=== PATIENT | male | born 1935 | race Caucasian/White ===

== ENCOUNTER 2017-09-16 06:22 | Observation (INO) | payer MEDICARE, SELFPAY ==
[2017-09-16] VITALS (23 sets, daily range): BP systolic 118–191; BP diastolic 49–87; PULSE 50–92; RESP 16–22; TEMP 36.7–37.3; O2SAT 92–98; BMI 32.3; BMI 31.8
--- NOTE | 2017-09-16 06:31 | HMH.EDCP ---
ED Disposition Clinical Impression: Angina at rest Disposition: Admitted As Inpatient Condition on Discharge: Serious - Critical Care Critical Care Time: No Attestation: On , the high probability of a clinically significant, sudden or life threatening deterioration of the following system(s) required my full and direct attention, intervention and personal management. The time I documented below is in addition to time spent performing reported procedures but includes the following listed in this critical care notation. Medical Decision Making - Medical Records Medical records reviewed: Yes: I reviewed the patient's medical records. - Lab Data Lab results reviewed: Yes: I reviewed the patient's lab results. Orders (Tests/Meds): ED MEDICATIONS Discontinued Medications Generic Name Dose Route Start Last Admin Trade Name Freq PRN Reason Stop Dose Admin Aspirin 243 mg 09/16/17 06:25 09/16/17 06:27 Aspirin 81mg Chewable Tablet PO 09/16/17 06:26 243 mg ONCE ONE Administration Nitroglycerin 0.4 mg 09/16/17 06:26 09/16/17 06:28 Nitrostat 0.4mg Sl Tablet SL 09/16/17 06:27 1 tab ONCE ONE Administration - ECG Data Tracing #1 I reviewed this ECG and interpreted as documented below: Ischemic changes: non-specific ST-T wave changes - Physician Consults Physician Consulted: rustam Reason -: Pt condition Additional Consult: osman Reason -: Admission - Jean-Claude Inquiry Pt receiving controlled substance: No Chest Pain HPI - General Stated Complaint: chest pressure Time Seen by Provider: 09/16/17 06:37 Mode of Arrival: Ambulatory Source of Information: Patient, Relative, Medical Record Limitations: No Limitations - History of Present Illness HPI narrative: acute onset of ant chest pain this am with diaphoresis - had cabg 3 yrs ago complaint: chest pain indicative of cardiac Duration: intermittent Activity at onset: during rest Pain location: substernal Severity: moderate Quality: tightness Pain radiation: none Associated symptoms: nausea, diaphoresis Risk Factors for CAD: Hypertension, Hypercholesterolemia, Family Hx of CAD Treatments prior to or on arrival for Cardiac Chest Pain: aspirin - RADHA Score Non-Stemi Age of patient: 65 yrs or more Number of risk factors for CAD: Presence of 3 or more Prior coronary artery stenosis(seen in coronary angiography): Less than 50% ST-Segment deviation on ECG (more than 1 min): Absent Prior aspirin intake: ASA intake in the last 7 days Severe anginal chest pain: Two or more episodes in last 24 hours Elevated cardiac markers(CK-MB or troponin): Absent Non-Stemi Risk Score: 4 - Related Data Prior Cardiac Testing/Procedures: CABG Home Medications Medication Instructions Recorded Confirmed Amlodipine Besylate [Norvasc 5mg 5 mg PO DAILY 09/16/17 09/16/17 tablet] Aspirin [Aspirin 81mg EC Tab] 81 mg PO DAILY 09/16/17 09/16/17 Cholecalciferol (Vitamin D3) 400 unit PO DAILY 09/16/17 09/16/17 [Vitamin D3] Clopidogrel Bisulfate [Clopidogrel 75 mg PO DAILY 09/16/17 09/16/17 75mg Tab] Cyanocobalamin (Vitamin B-12) 2,500 mcg PO DAILY 09/16/17 09/16/17 [Vitamin B12 2.5mg Tab] Docusate Sodium [Docusate Sodium 100 mg PO BID 09/16/17 09/16/17 100mg Cap] Empagliflozin [Jardiance] 10 mg PO DAILY 09/16/17 09/16/17 Fenofibrate,Micronized [Tricor 145 mg PO DAILY 09/16/17 09/16/17 145mg] Gabapentin [Gabapentin 300mg Cap] 300 mg PO TID 09/16/17 09/16/17 Polyethylene Glycol 3350 [Miralax 17 gm PO BID 09/16/17 09/16/17 17gm Packet] Ramipril 10 mg PO DAILY 09/16/17 09/16/17 Rosuvastatin Calcium [Crestor] 10 mg PO DAILY 09/16/17 09/16/17 Tamsulosin HCl [Flomax] 0.4 mg PO DAILY 09/16/17 09/16/17 Torsemide [Demadex] 20 mg PO BID 09/16/17 09/16/17 glipiZIDE [Glipizide Xl] 10 mg PO AC 09/16/17 09/16/17 Allergies Allergy/AdvReac Type Severity Reaction Status Date / Time No Known Allergies Allergy Verified
--- NOTE | 2017-09-16 06:37 | ED_ITS ---
ED Disposition Clinical Impression: Angina at rest Disposition: Admitted As Inpatient Condition on Discharge: Serious - Critical Care Critical Care Time: No Attestation: On , the high probability of a clinically significant, sudden or life threatening deterioration of the following system(s) required my full and direct attention, intervention and personal management. The time I documented below is in addition to time spent performing reported procedures but includes the following listed in this critical care notation. Medical Decision Making - Medical Records Medical records reviewed: Yes: I reviewed the patient's medical records. - Lab Data Lab results reviewed: Yes: I reviewed the patient's lab results. Orders (Tests/Meds): ED MEDICATIONS Discontinued Medications Generic Name Dose Route Start Last Admin Trade Name Freq PRN Reason Stop Dose Admin Aspirin 243 mg 09/16/17 06:25 09/16/17 06:27 Aspirin 81mg Chewable Tablet PO 09/16/17 06:26 243 mg ONCE ONE Administration Nitroglycerin 0.4 mg 09/16/17 06:26 09/16/17 06:28 Nitrostat 0.4mg Sl Tablet SL 09/16/17 06:27 1 tab ONCE ONE Administration - ECG Data Tracing #1 I reviewed this ECG and interpreted as documented below: Ischemic changes: non-specific ST-T wave changes - Physician Consults Physician Consulted: rustam Reason -: Pt condition Additional Consult: osman Reason -: Admission - Jean-Claude Inquiry Pt receiving controlled substance: No Chest Pain HPI - General Stated Complaint: chest pressure Time Seen by Provider: 09/16/17 06:37 Mode of Arrival: Ambulatory Source of Information: Patient, Relative, Medical Record Limitations: No Limitations - History of Present Illness HPI narrative: acute onset of ant chest pain this am with diaphoresis - had cabg 3 yrs ago complaint: chest pain indicative of cardiac Duration: intermittent Activity at onset: during rest Pain location: substernal Severity: moderate Quality: tightness Pain radiation: none Associated symptoms: nausea, diaphoresis Risk Factors for CAD: Hypertension, Hypercholesterolemia, Family Hx of CAD Treatments prior to or on arrival for Cardiac Chest Pain: aspirin - RADHA Score Non-Stemi Age of patient: 65 yrs or more Number of risk factors for CAD: Presence of 3 or more Prior coronary artery stenosis(seen in coronary angiography): Less than 50% ST-Segment deviation on ECG (more than 1 min): Absent Prior aspirin intake: ASA intake in the last 7 days Severe anginal chest pain: Two or more episodes in last 24 hours Elevated cardiac markers(CK-MB or troponin): Absent Non-Stemi Risk Score: 4 - Related Data Prior Cardiac Testing/Procedures: CABG Home Medications Medication Instructions Recorded Confirmed Amlodipine Besylate [Norvasc 5mg 5 mg PO DAILY 09/16/17 09/16/17 tablet] Aspirin [Aspirin 81mg EC Tab] 81 mg PO DAILY 09/16/17 09/16/17 Cholecalciferol (Vitamin D3) 400 unit PO DAILY 09/16/17 09/16/17 [Vitamin D3] Clopidogrel Bisulfate [Clopidogrel 75 mg PO DAILY 09/16/17 09/16/17 75mg Tab] Cyanocobalamin (Vitamin B-12) 2,500 mcg PO DAILY 09/16/17 09/16/17 [Vitamin B12 2.5mg Tab] Docusate Sodium [Docusate Sodium 100 mg PO BID 09/16/17 09/16/17 100mg Cap] Empagliflozin [Jardiance] 10 mg PO DAILY 09/16/17 09/16/17 Feno
--- NOTE | 2017-09-16 06:46 | XR_ITS ---
XR chest portable HISTORY: ITS.REASON: chest pain ORDERING PHYSICIAN: Rigo May MD PATIENT AGE: 81 years COMPARISON: 11/23/2012 FINDINGS: There has been an interval median sternotomy with CABG. There is increased density along the left heart border which may be related to postsurgical changes have an a similar appearance on a prior scanogram of the chest CT of 04/08/2016. The remaining lungs are clear. Bone plate is present over the lower cervical spine. IMPRESSION: No acute finding. Postsurgical changes
--- NOTE | 2017-09-16 06:46 | CA_ITS ---
PROCEDURE: 2-D M-mode and color Doppler study INDICATIONS FOR THE TEST: Chest pain X COPD Heart Murmur Tobacco Smoking Palpitations Fatigue Syncope Edema HypertensionXDiabetes MellitusX Rheumatic Fever SOBXDOE ObesityXXHyperlipidemiaX Family History HD Additional History CABG,CAD PATIENT INFORMATION HEIGHT: 70 WEIGHT:225 GENDER: Male B/P:131/68 2-D/M-MODE INTERPRETATION: 2-D MEASUREMENTS OBSERVED VALUES IN CMS Right Ventricular Dimension (RVDd) 2.6 Interventricular Septum (Thickness)(IVsd) 1.0 Left Ventricular Internal Dimensions(LVIDd) 5.4 Left Ventricular Posterior Wall (Thickness)(LVPWd) .9 Aortic Root 3.5 Aortic Cusp Separation 1.6 Left Atrial Dimensions (LAD) 3.8 2D 1. Left atrium is mildly enlarged, left ventricle is normal size, there is mild qualitative concentric left ventricular hypertrophy, visually estimated ejection fraction 55% with no obvious regional wall motion abnormality. 2. The right atrium and right ventricle are relatively normal size and function 3. The aortic valve is minimally thickened and calcified leaflet can't display good mobility. 4. The mitral and tricuspid valve leaflets are minimally thickened. 5. The pulmonic valve is poorly visualized 6. No significant pericardial effusion noted. DOPPLER INTERROGATION: Doppler interrogation of the aortic, mitral and tricuspid valvular presence of mild mitral and tricuspid regurgitation, tricuspid and jet velocity insufficient for calculation of the right ventricular systolic pressure, grade 1 diastolic dysfunction seen with tissue Doppler evidence of raised left atrial pressure. CONCLUSION: 1. Mildly enlarged left atrium, normal left ventricular size, mild concentric left ventricular hypertrophy, visually estimated ejection fraction 55% with no obvious regional wall motion abnormality, grade 1 diastolic dysfunction seen with tissue Doppler evidence of raised left atrial pressure. 2. Mild mitral and tricuspid regurgitation. 3. No significant pericardial effusion noted.
[2017-09-16 06:53] LABS: POC Glucose,Bedside 243 mg/dL
[2017-09-16 07:38] LABS: Activated Partial Thrombo Time 23.3 seconds (23.6-34.0); INR 1.01 (0.9-1.1); Prothrombin Time 10.9 seconds (9.4-11.8)
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
--- NOTE | 2017-09-16 07:45 | IR_ITS ---
CARDIAC CATHETERIZATION DATE OF CATHETERIZATION:09/16/2017 8:05 AM PROCEDURES: 1. Left heart catheterization 2. Left ventriculogram 3. Selective coronary angiogram 4. Left internal mammary angiography 5. Bilateral selective renal angiogram 6. Drug-eluting stent deployment to the LAD 7. Drug-eluting stent deployment the circumflex artery INDICATION FOR TEST: 1. Acute coronary syndrome 2. Coronary artery disease 3. History of coronary artery bypass surgery 4. Chronic renal failure creatinine 1.5 5. Hypertension 6. Renovascular hypertension 7. Suspected renal artery stenosis Informed consent was obtained prior to the procedure. COMPLICATIONS: None ESTIMATED BLOOD LOSS: Less than 10 ml. TECHNIQUE: One percent lidocaine was used to anesthetize the right groin. The right femoral artery was accessed via the Seldinger technique. A 5 [place] sheath was placed in the right femoral artery and a JL 4 JR4 catheter were used for the diagnostic left heart catheterization left ventriculogram selective coronary angiography as well as left internal mammary angiography. Because of patient's severe hypertension along with creatinine of 1.5 and known severe coronary artery disease] decided to perform bilateral selective renal angiography to determine or evaluate for renovascular hypertension or renal artery stenosis. The JR4 catheter was used to selectively intubate each renal artery. At the end the diagnostic angiogram the ACT was 204 seconds therefore 7000 units of heparin was administered intra-arterially producing an ACT of 373 seconds. A 45 cm 6 Liberian sheath was placed in the right groin and the 5 Liberian sheath was removed over a wire. A 6 [place]ian JL4 guide catheter was used intubate the left main artery and a wire was placed in the LAD as well as the circumflex artery. A 3 mm x 10 mm balloon was placed in the distal left main artery extending into the LAD and deployed at 20 danielle. Following this a 3 mm x 12 mm resolute [place] stent was deployed in the distal left main extending into the proximal LAD at 20 danielle. A 4 mm x 6 mm balloon was then placed in the distal left main artery and deployed at 20 danielle in order to post dilate. The wire was pulled back out of the LAD and into the circumflex artery where 3 mm x 12 mm balloon was used to open the struts going into the circumflex artery. Following this a 4 mm x 12 mm resolute [place] stent was placed in the left main artery extending into the ostial proximal circumflex artery this was deployed at 18 danielle. Excellent angiographic results were obtained therefore the balloon was brought back and placed into the left coronary cusp and the ostium of the left main artery and then the balloon was deployed at 20 danielle in order to post dilate. Repeat angiography demonstrated the LAD was widely patent in its proximal segment and now feeding the very large first diagonal artery in an antegrade manner. At the end of the procedure the apparatus was removed the groin is reprepped closure changed sheath was removed good hemostasis was achieved using Perclose device patient transferred to the postop holding area in stable condition ANGIOGRAPHIC RESULTS: 1. The left main artery is short and normal 2. The left anterior descending artery has an ostial 99% stenosis which then gives rise to a large unbypassed first diagonal artery. There is very scant competitive flow in the LAD system with no backfilling of the large first diagonal artery from the OSWALD graft. 3. The circumflex artery is a nondominant vessel yet still supplies a medium in very large second and third obtuse marginal artery. There is proximal 30% stenosis followed by additional 20-30% stenoses in the third obtuse 4. The right coronary artery is a dominant vessel has proximal 30-40% stenoses mid v
[2017-09-16 07:56] LABS: Alanine Aminotransferase 31 U/L (12-78); Albumin Level 3.5 gm/dL (3.4-5.0); Alkaline Phosphatase 53 U/L (46-116); Anion Gap 14.1 mEq/L (5-15); Bilirubin,Direct 0.1 mg/dL (0.0-0.2); Bilirubin,Total 0.3 mg/dL (0.2-1.0); Blood Urea Nitrogen 28 mg/dL (7-18); Carbon Dioxide 28 mmol/L (21.0-32.0); Chloride 104 mmol/L (98-107); Creatinine Clearance Estimated 56 mL/min (0-300); Creatinine,Serum 1.54 mg/dL (0.70-1.30); Estimated Glomerular Filt Rate 44 ml/min (>60); GFR (African American) 53 ML/MIN (>60); Glucose 225 mg/dL (74-106); Sodium 141 mmol/L (136-145); Total Protein,Serum 6.9 gm/dL (6.4-8.2)
[2017-09-16 07:58] LABS: Basophils % 0.7 % (0.1-2.0); Eosinophils # 0.1 K/mm3 (0.0-0.4); Eosinophils % 2.2 % (0.1-12.0); Hematocrit 38.7 % (42.0-52.0); Hemoglobin 12.3 g/dL (14.1-18.0); Lymphocytes # 3.3 K/mm3 (0.7-4.5); Mean Corpuscular HGB Conc 31.7 g/dL (31.8-35.4); Mean Corpuscular Hemoglobin 29.8 pg (27.0-31.2); Mean Corpuscular Volume 94.2 fl (80-94); Mean Platelet Volume 9.4 fl (7.4-10.4); Monocytes # 0.5 K/mm3 (0.1-1.0); Monocytes % 8.1 % (1.7-9.3); Neutrophils # 1.9 K/mm3 (1.8-7.8); Platelet Count 234 K/mm3 (142-424); Red Blood Count 4.11 M/mm3 (4.60-6.20); Red Cell Distribution Width 12.8 % (11.5-17.5); White Blood Count 5.8 K/mm3 (4.8-10.8)
[2017-09-16 08:00] LABS: MANUAL DIFFERENTIAL MANUAL DIFFERENTIAL (MANUAL DIFF)
[2017-09-16 08:04] LABS: Potassium 5.1 mmoL/L (3.5-5.1)
[2017-09-16 08:05] LABS: Aspartate Amino Transferase 24 U/L (15-37)
[2017-09-16 08:06] LABS: Creatine Kinase 72 U/L (39-308)
[2017-09-16 08:07] LABS: CKMB Relative Index 0.7 U/L (0-4.0); Creatine Kinase MB < 0.5 mg/ml (0.0-3.6); Troponin I < 0.02 ng/ml (0.00-0.06)
[2017-09-16 08:39] LABS: Eosinophils % 1 % (0-3); Lymphocytes % 49 % (10-50); Monocytes % 4 % (2-9); Neutrophils % 40 % (42-76); Total Cells Counted 100
[2017-09-16 08:40] LABS: Platelet Estimate Normal
[2017-09-16 11:00] LABS: CATHL Activated Clotting Time 202 SEC (74-125)
[2017-09-16 11:01] LABS: CATHL Activated Clotting Time 373 SEC (74-125)
--- NOTE | 2017-09-16 16:04 | HMH.HP ---
*Admission Date: 09/16/17 *Chief complaint: Chest pressure *History of present illness: 81-year-old male with history of coronary artery disease, status post CABG, diabetes that is controlled, morbid obesity, hyperlipidemia, hypertension, sedentary lifestyle presented to the emergency department after developing an episode of presyncope with diaphoresis and chest pressure this evening while preparing for a trip out of town. Patient tells me he felt like he was getting ready to pass out he then broke out in a sweat and this was followed by discomfort in the central chest. He became concerned about cardiac related event and presented to the emergency department. In the emergency department patient was evaluated. EKG did not reveal any ischemic changes and first troponin was negative. Cardiology was contacted due to the patient's presentation in cardiac catheterization is to be performed. Patient has been diagnosed with acute coronary syndrome/unstable angina [facility] History I have reviewed the patient's past medical history: Yes Medical History: Reports:: Atherosclerotic Heart Disease, Cancer (MELANOMA), Coronary Artery Disease, Diabetes Mellitus Type 2, Hyperlipidemia, Hypertension Denies:: Diabetes Mellitus Type 1, MRSA Other Medical History: Reports: Arthritis Comment: ObstructIVE sleep apnea, abdominal aortic aneurysm status post repair Other Surgeries: Yes: Angioplasty, Cancer Surgery, Coronary Stent, EGD, Other (COLONOSCOPY WITH POLYP REMOVAL, CHOLEYSYSTECTOMY) Amputation: No Fractures: No - *Social History Educational Level: Completed College Smoking Status: Never smoker Alcohol Intake: never Occupational Status: retired Housing: house Household Members: spouse - Psychiatric History Expresses thoughts of harming self/others: None Suicide Plan Description: No Plan *Family Hx:: Cancer Review of Systems - Review of Systems Review of systems:: pertinent systems reviewed and negative unless documented below See HPI - *Neurologic Denies seizure-like activity Meds Home Medications Medication Instructions Recorded Confirmed Type Amlodipine Besylate [Norvasc 5mg 5 mg PO DAILY 09/16/17 09/16/17 History tablet] Aspirin [Aspirin 81mg EC Tab] 81 mg PO DAILY 09/16/17 09/16/17 History Cholecalciferol (Vitamin D3) 400 unit PO DAILY 09/16/17 09/16/17 History [Vitamin D3] Clopidogrel Bisulfate [Clopidogrel 75 mg PO DAILY 09/16/17 09/16/17 History 75mg Tab] Cyanocobalamin (Vitamin B-12) 2,500 mcg PO DAILY 09/16/17 09/16/17 History [Vitamin B12 2.5mg Tab] Docusate Sodium [Docusate Sodium 100 mg PO BID 09/16/17 09/16/17 History 100mg Cap] Empagliflozin [Jardiance] 10 mg PO DAILY 09/16/17 09/16/17 History Fenofibrate,Micronized [Tricor 145 mg PO DAILY 09/16/17 09/16/17 History 145mg] Gabapentin [Gabapentin 300mg Cap] 300 mg PO TID 09/16/17 09/16/17 History Polyethylene Glycol 3350 [Miralax 17 gm PO BID 09/16/17 09/16/17 History 17gm Packet] RX: Ramipril 10 mg PO DAILY 09/16/17 09/16/17 History Rosuvastatin Calcium [Crestor] 10 mg PO DAILY 09/16/17 09/16/17 History Tamsulosin HCl [Flomax] 0.4 mg PO DAILY 09/16/17 09/16/17 History Torsemide [Demadex] 20 mg PO BID 09/16/17 09/16/17 History glipiZIDE [Glipizide Xl] 10 mg PO AC 09/16/17 09/16/17 History Allergies Allergy/AdvReac Type Severity Reaction Status Date / Time No Known Allergies Allergy Verified 09/16/17 06:24 Exam Vital signs and Labs for Last 24 Hours: Temp Pulse Resp BP Pulse Ox 99.1 F 76 20 191/75 94 L 09/16/17 10:54 09/16/17 10:54 09/16/17 10:54 09/16/17 10:54 09/16/17 10:54 Laboratory Results - last 24 hr 09/16/17 06:41: POC Glucose 243 09/16/17 06:45: WBC 5.8, RBC 4.11 L, Hgb 12.3 L, Hct 38.7 L, MCV 94.2 H, MCH 29.8, MCHC 31.7 L, RDW 12.8, Plt Count 234, MPV 9.4, Neut % (Auto) 33.0 L, Lymph % (Auto) 56.0 H, [place] % (Auto) 8.1, Eos % (Auto) 2.2, Baso % (Auto) 0.7, Neut # (Auto) 1.9, Lymph # (Auto) 3.3,
--- NOTE | 2017-09-16 16:07 | P.HP_ITS ---
*Admission Date: 09/16/17 *Chief complaint: Chest pressure *History of present illness: 81-year-old male with history of coronary artery disease, status post CABG, diabetes that is controlled, morbid obesity, hyperlipidemia, hypertension, sedentary lifestyle presented to the emergency department after developing an episode of presyncope with diaphoresis and chest pressure this evening while preparing for a trip out of town. Patient tells me he felt like he was getting ready to pass out he then broke out in a sweat and this was followed by discomfort in the central chest. He became concerned about cardiac related event and presented to the emergency department. In the emergency department patient was evaluated. EKG did not reveal any ischemic changes and first troponin was negative. Cardiology was contacted due to the patient's presentation in cardiac catheterization is to be performed. Patient has been diagnosed with acute coronary syndrome/unstable angina [facility] History I have reviewed the patient's past medical history: Yes Medical History: Reports:: Atherosclerotic Heart Disease, Cancer (MELANOMA), Coronary Artery Disease, Diabetes Mellitus Type 2, Hyperlipidemia, Hypertension Denies:: Diabetes Mellitus Type 1, MRSA Other Medical History: Reports: Arthritis Comment: ObstructIVE sleep apnea, abdominal aortic aneurysm status post repair Other Surgeries: Yes: Angioplasty, Cancer Surgery, Coronary Stent, EGD, Other ( COLONOSCOPY WITH POLYP REMOVAL, CHOLEYSYSTECTOMY) Amputation: No Fractures: No - *Social History Educational Level: Completed College Smoking Status: Never smoker Alcohol Intake: never Occupational Status: retired Housing: house Household Members: spouse - Psychiatric History Expresses thoughts of harming self/others: None Suicide Plan Description: No Plan *Family Hx:: Cancer Review of Systems - Review of Systems Review of systems:: pertinent systems reviewed and negative unless documented below See HPI - *Neurologic Denies seizure-like activity Meds Home Medications Medication Instructions Recorded Confirmed Type Amlodipine Besylate [Norvasc 5mg 5 mg PO DAILY 09/16/17 09/16/17 History tablet] Aspirin [Aspirin 81mg EC Tab] 81 mg PO DAILY 09/16/17 09/16/17 History Cholecalciferol (Vitamin D3) 400 unit PO DAILY 09/16/17 09/16/17 History [Vitamin D3] Clopidogrel Bisulfate [Clopidogrel 75 mg PO DAILY 09/16/17 09/16/17 History 75mg Tab] Cyanocobalamin (Vitamin B-12) 2,500 mcg PO DAILY 09/16/17 09/16/17 History [Vitamin B12 2.5mg Tab] Docusate Sodium [Docusate Sodium 100 mg PO BID 09/16/17 09/16/17 History 100mg Cap] Empagliflozin [Jardiance] 10 mg PO DAILY 09/16/17 09/16/17 History Fenofibrate,Micronized [Tricor 145 mg PO DAILY 09/16/17 09/16/17 History 145mg] Gabapentin [Gabapentin 300mg Cap] 300 mg PO TID 09/16/17 09/16/17 History Polyethylene Glycol 3350 [Miralax 17 gm PO BID 09/16/17 09/16/17 History 17gm Packet] RX: Ramipril 10 mg PO DAILY 09/16/17 09/16/17 History Rosuvastatin Calcium [Crestor] 10 mg PO DAILY 09/16/17 09/16/17 History Tamsulosin HCl [Flomax] 0.4 mg PO DAILY 09/16/17 09/16/17 History Torsemide [Demadex] 20 mg PO BID 09/16/17 09/16/17 History glipiZIDE [Glipizide Xl] 10 mg PO AC 09/16/17 09/16/17 History Allergies Allergy/AdvReac Type Severity Reaction Status Date / Time No Known Allergies Allergy Verified 09/16/17 06:24
--- NOTE | 2017-09-16 19:14 | HMH.DCSUM ---
General - General Admission date: 09/16/17 Discharge date: 09/17/17 HPI HPI: 81-year-old male with history of coronary artery disease, status post CABG, diabetes that is controlled, morbid obesity, hyperlipidemia, hypertension, sedentary lifestyle presented to the emergency department after developing an episode of presyncope with diaphoresis and chest pressure this evening while preparing for a trip out of town. Patient tells me he felt like he was getting ready to pass out he then broke out in a sweat and this was followed by discomfort in the central chest. He became concerned about cardiac related event and presented to the emergency department. In the emergency department patient was evaluated. EKG did not reveal any ischemic changes and first troponin was negative. Cardiology was contacted due to the patient's presentation and cardiac catheterization is to be performed. Patient has been diagnosed with acute coronary syndrome/unstable angina Objective Vital signs: Temp Pulse Resp BP Pulse Ox 98.4 F 71 20 121/49 96 09/16/17 16:00 09/16/17 18:00 09/16/17 18:00 09/16/17 18:00 09/16/17 18:00 Hospital Course Hospital Course: Patient was taken from the emergency room directly to the [facility] where he underwent left heart catheterization. Patient had [address] Brigette peralta. Patient was kept after his procedure for 24 hours for telemetry monitoring. Echocardiogram was also performed which showed increased left atrial pressure and grade 1 diastolic dysfunction. On the the patient had done well overnight without any arrhythmias. He was never having any chest discomfort and denied dyspnea. Patient was discharged home DS: Diagnosis - Discharge Diagnosis (1) Unstable angina Status: Acute (2) H/O class III angina pectoris Status: Acute (3) Coronary artery disease Status: Acute (4) History of coronary artery bypass graft Status: Acute (5) Diabetes type 2, controlled Status: Acute (6) Hypertension Status: Acute (7) Hyperlipidemia Status: Acute (8) Chronic pain syndrome Status: Acute (9) Obstructive sleep apnea on CPAP Status: Acute Meds Home Medications Medication Instructions Recorded Confirmed Type Amlodipine Besylate [Norvasc 5mg 5 mg PO DAILY 09/16/17 09/16/17 History tablet] Aspirin [Aspirin 81mg EC Tab] 81 mg PO DAILY 09/16/17 09/16/17 History Cholecalciferol (Vitamin D3) 400 unit PO DAILY 09/16/17 09/16/17 History [Vitamin D3] Clopidogrel Bisulfate [Clopidogrel 75 mg PO DAILY 09/16/17 09/16/17 History 75mg Tab] Cyanocobalamin (Vitamin B-12) 2,500 mcg PO DAILY 09/16/17 09/16/17 History [Vitamin B12 2.5mg Tab] Docusate Sodium [Docusate Sodium 100 mg PO BID 09/16/17 09/16/17 History 100mg Cap] Empagliflozin [Jardiance] 10 mg PO DAILY 09/16/17 09/16/17 History Fenofibrate,Micronized [Tricor 145 mg PO DAILY 09/16/17 09/16/17 History 145mg] Gabapentin [Gabapentin 300mg Cap] 300 mg PO TID 09/16/17 09/16/17 History Polyethylene Glycol 3350 [Miralax 17 gm PO BID 09/16/17 09/16/17 History 17gm Packet] RX: Ramipril 10 mg PO DAILY 09/16/17 09/16/17 History Rosuvastatin Calcium [Crestor] 10 mg PO DAILY 09/16/17 09/16/17 History Tamsulosin HCl [Flomax] 0.4 mg PO DAILY 09/16/17 09/16/17 History Torsemide [Demadex] 20 mg PO BID 09/16/17 09/16/17 History glipiZIDE [Glipizide Xl] 10 mg PO AC 09/16/17 09/16/17 History Allergies Allergy/AdvReac Type Severity Reaction Status Date / Time No Known Allergies Allergy Verified 09/16/17 06:24 Discharge Plan - Patient Discharge Instructions ACTIVITY: Continue current activity DIET: continue same diet - Follow up Plan Follow up with: Rigo May MD [Staff Physician] - Bk Morales MD [Primary Care Provider] - (As scheduled) Disposition: Home, Self-Long Term Medications: Home Medications Medication Instructions Recorded Con
--- NOTE | 2017-09-16 19:17 | P.DS_ITS ---
General - General Admission date: 09/16/17 Discharge date: 09/17/17 HPI HPI: 81-year-old male with history of coronary artery disease, status post CABG, diabetes that is controlled, morbid obesity, hyperlipidemia, hypertension, sedentary lifestyle presented to the emergency department after developing an episode of presyncope with diaphoresis and chest pressure this evening while preparing for a trip out of town. Patient tells me he felt like he was getting ready to pass out he then broke out in a sweat and this was followed by discomfort in the central chest. He became concerned about cardiac related event and presented to the emergency department. In the emergency department patient was evaluated. EKG did not reveal any ischemic changes and first troponin was negative. Cardiology was contacted due to the patient's presentation and cardiac catheterization is to be performed. Patient has been diagnosed with acute coronary syndrome/unstable angina Objective Vital signs: Temp Pulse Resp BP Pulse Ox 98.4 F 71 20 121/49 96 09/16/17 16:00 09/16/17 18:00 09/16/17 18:00 09/16/17 18:00 09/16/17 18:00 Hospital Course Hospital Course: Patient was taken from the emergency room directly to the [facility] where he underwent left heart catheterization. Patient had [address] Brigette peralta. Patient was kept after his procedure for 24 hours for telemetry monitoring. Echocardiogram was also performed which showed increased left atrial pressure and grade 1 diastolic dysfunction. On the the patient had done well overnight without any arrhythmias. He was never having any chest discomfort and denied dyspnea. Patient was discharged home DS: Diagnosis - Discharge Diagnosis (1) Unstable angina Status: Acute (2) H/O class III angina pectoris Status: Acute (3) Coronary artery disease Status: Acute (4) History of coronary artery bypass graft Status: Acute (5) Diabetes type 2, controlled Status: Acute (6) Hypertension Status: Acute (7) Hyperlipidemia Status: Acute (8) Chronic pain syndrome Status: Acute (9) Obstructive sleep apnea on CPAP Status: Acute Meds Home Medications Medication Instructions Recorded Confirmed Type Amlodipine Besylate [Norvasc 5mg 5 mg PO DAILY 09/16/17 09/16/17 History tablet] Aspirin [Aspirin 81mg EC Tab] 81 mg PO DAILY 09/16/17 09/16/17 History Cholecalciferol (Vitamin D3) 400 unit PO DAILY 09/16/17 09/16/17 History [Vitamin D3] Clopidogrel Bisulfate [Clopidogrel 75 mg PO DAILY 09/16/17 09/16/17 History 75mg Tab] Cyanocobalamin (Vitamin B-12) 2,500 mcg PO DAILY 09/16/17 09/16/17 History [Vitamin B12 2.5mg Tab] Docusate Sodium [Docusate Sodium 100 mg PO BID 09/16/17 09/16/17 History 100mg Cap] Empagliflozin [Jardiance] 10 mg PO DAILY 09/16/17 09/16/17 History Fenofibrate,Micronized [Tricor 145 mg PO DAILY 09/16/17 09/16/17 History 145mg] Gabapentin [Gabapentin 300mg Cap] 300 mg PO TID 09/16/17 09/16/17 History Polyethylene Glycol 3350 [Miralax 17 gm PO BID 09/16/17 09/16/17 History 17gm Packet] RX: Ramipril 10 mg PO DAILY 09/16/17 09/16/17 History Rosuvastatin Calcium [Crestor] 10 mg PO DAILY 09/16/17 09/16/17 History Tamsulosin HCl [Flomax] 0.4 mg PO DAILY 09/16/17 09/16/17 History Torsemide [Demadex] 20 mg PO BID 09/16/17 09/16/17 Hist
--- NOTE | 2017-09-16 19:30 | PC.NURSE ---
RIGHT GROIN CATH SITE CHECKED WITH Ryan TORRES RN DURING BEDSIDE REPORT. SCANT AMOUNT OF DRIED BLOOD NOTED TO DRESSING WHICH HAS BEEN UNCHANGED PER Ryan TORRES RN. NO HEMATOMA/BRUISING PRESENT. DRESSING INTACT. WILL CONTINUE TO MONITOR.
[2017-09-17] VITALS: BP 149/62; PULSE 56; PULSE 59; RESP 18; TEMP 36.8; O2SAT 94
[2017-09-17 02:00] VITALS: BP 157/67; PULSE 57; RESP 18; O2SAT 95
[2017-09-17 04:00] VITALS: BP 139/58; PULSE 58; PULSE 60; RESP 18; O2SAT 59
[2017-09-17 06:00] VITALS: BP 142/59; PULSE 60; RESP 18; O2SAT 93
--- NOTE | 2017-09-17 07:46 | HMH.PHAVTE ---
[facility] Pharmacy VTE Monitoring - Patient Demographics Admission date: 09/16/17 Report Date: 09/17/17 Time: 07:47 Allergies/Adverse Reactions: Patient Allergies No Known Allergies Allergy (Verified 09/16/17 06:24) Height: 1.78 m Weight: 102.058 kg Patient Problems: Current Active Problems Angina at rest (Acute) H/O class III angina pectoris (Acute) Coronary artery disease (Acute) History of coronary artery bypass graft (Acute) Diabetes type 2, controlled (Acute) Hypertension (Acute) Hyperlipidemia (Acute) Chronic pain syndrome (Acute) Obstructive sleep apnea on CPAP (Acute) Unstable angina (Acute) - VTE Risk Labs: VTE Related Lab Results Hgb 12.3 g/dL (14.1-18.0) L 09/16/17 06:45 Hct 38.7 % (42.0-52.0) L 09/16/17 06:45 Plt Count 234 K/mm3 (142-424) 09/16/17 06:45 PT 10.9 seconds (9.4-11.8) 09/16/17 06:45 INR 1.01 (0.9-1.1) 09/16/17 06:45 APTT 23.3 seconds (23.6-34.0) L 09/16/17 06:45 BUN 28 mg/dL (7-18) H 09/16/17 06:45 Creatinine 1.54 mg/dL (0.70-1.30) H 09/16/17 06:45 Estimated Creat Clear 56 mL/min (0-300) 09/16/17 06:45 Was VTE Risk Assessment Performed: Yes VTE Score: 4 VTE Risk Level: Low Risk Clinical Trial Participant: No - Prophylaxis VTE Prophylaxis Ordered?: Yes Types of VTE Prophylaxis: TEDS Knee High
[2017-09-17 08:00] VITALS: BP 155/65; PULSE 70; PULSE 72; RESP 20; TEMP 36.4; O2SAT 96
--- NOTE | 2017-09-17 09:31 | HMH.CARDPN2 ---
Subjective PN (PG) Date: 09/17/17 Time: 08:30 Principal diagnosis: Angina Interval history: 89-year-old white female in bed in no acute distress. Patient received coronary stents to the LAD and circumflex artery yesterday he denies any complications or problems overnight. PN Exam ([facility]) Vital signs: Temp Pulse Resp BP Pulse Ox 98.3 F 60 18 142/59 93 L 09/17/17 00:00 09/17/17 06:00 09/17/17 06:00 09/17/17 06:00 09/17/17 06:00 - Routine Respiratory Exam Present: CTA bilaterally - Routine Cardiovascular Exam Present: RRR A/P Progress Note ([facility]) (1) H/O class III angina pectoris Status: Acute Current Visit: Yes (2) Coronary artery disease Status: Acute Assessment and plan: Luis Miguel post drug-eluting stent to LAD and circumflex distribution. Patient will continue aspirin and Plavix. Okay for discharge from cardiology standpoint. Follow-up in 1 week. Current Visit: Yes (3) History of coronary artery bypass graft Status: Acute Current Visit: Yes (4) Diabetes type 2, controlled Status: Acute Current Visit: Yes (5) Hypertension Status: Acute Current Visit: Yes (6) Hyperlipidemia Status: Acute Current Visit: Yes (7) Chronic pain syndrome Status: Acute Current Visit: Yes (8) Obstructive sleep apnea on CPAP Status: Acute Current Visit: Yes
--- NOTE | 2017-09-25 12:57 | PC.NURSE ---
post procedure call made, pt did not answer, message left for pt to call hospital with any questions/concerns
== END 2017-09-17 10:40 | disposition home or self-care (01) ==
LOC: ER 07:14 → CATHLAB 07:40 → ICU 12:31
PROVIDERS: Admitting Provider Internal Medicine; Emergency Provider Emergency Medicine; Family Provider Family Medicine; PCP Family Medicine; Visit Provider Family Medicine
DX: I25.10 Atherosclerotic heart disease of native coronary artery without angina pectoris (principal); Z95.1 Presence of aortocoronary bypass graft; N18.9 Chronic kidney disease, unspecified; I13.0 Hypertensive heart and chronic kidney disease with heart failure and stage 1 through stage 4 chronic kidney disease, or unspecified chronic kidney disease; E11.22 Type 2 diabetes mellitus with diabetic chronic kidney disease; I50.30 Unspecified diastolic (congestive) heart failure; G89.4 Chronic pain syndrome
CPT/HCPCS: 36252; 71045; 80048; 80076; 82550; 82553; 82962; 84484; 85007; 85025; 85347; 85610; 85730; 92928; 93005; 93041; 93306; 93459; 96374; 99152; 99153; 99282; C1725; C1760; C1769; C1876; C1894; C9600; G0378; J1644; Q9967

== ENCOUNTER 2017-09-24 13:44 | Outpatient (RCR) | payer MEDICARE, SELFPAY | END 2017-09-24 13:45 | disposition home or self-care (01) | LOC: PT 13:44 | PROVIDERS: Visit Provider Internal Medicine | DX: Z95.5 Presence of coronary angioplasty implant and graft (principal) | CPT/HCPCS: 93798 ==

== ENCOUNTER → 2017-09-29 12:31 | Outpatient (CLI) | payer MEDICARE, SELFPAY | PROVIDERS: PCP Family Medicine; Visit Provider Internal Medicine | DX: I72.4 Aneurysm of artery of lower extremity (principal); I25.10 Atherosclerotic heart disease of native coronary artery without angina pectoris; I10 Essential (primary) hypertension; Z95.5 Presence of coronary angioplasty implant and graft | CPT/HCPCS: 93926 ==

== ENCOUNTER → 2017-11-03 15:52 | Outpatient (CLI) | payer MEDICARE, SELFPAY | PROVIDERS: PCP Family Medicine; Visit Provider Family Medicine | DX: R55 Syncope and collapse (principal) | CPT/HCPCS: 93270 ==

== ENCOUNTER → 2017-12-16 12:32 | Outpatient (CLI) | payer MEDICARE, SELFPAY ==
[2017-12-16 13:32] LABS: Prostate Specific Ag Screen 0.3 ng/mL (0.0-4.0)
== END ==
PROVIDERS: Visit Provider Urology
DX: Z12.5 Encounter for screening for malignant neoplasm of prostate (principal); N40.0 Benign prostatic hyperplasia without lower urinary tract symptoms
CPT/HCPCS: 36415; G0103

== ENCOUNTER → 2018-08-07 09:36 | Outpatient (CLI) | payer MEDICARE, SELFPAY ==
--- NOTE | 2018-08-07 09:46 | XR_ITS ---
XR finger LT min 2V CLINICAL INDICATION: Left thigh pain ITS.REASON: LEFT HIP PAIN,ARTHRITIS OF LEFT THUMB ORDERING PHYSICIAN: Bk Morales MD PATIENT AGE: 82 years Comparison: None FINDINGS: There are mild osteoarthritic changes of the first metacarpal carpal joint, first metacarpophalangeal joint, and interphalangeal joint of the thumb. No fracture or dislocation. No lytic or blastic change. There is some mild cortical thickening of the proximal and anterior aspect of the first metacarpal and could be related to an old injury. IMPRESSION: Mild osteoarthritis
--- NOTE | 2018-08-07 09:46 | XR_ITS ---
XR hip LT 2-3V w/pelvis HISTORY: Left hip pain ITS.REASON: LEFT HIP PAIN,ARTHRITIS OF LEFT THUMB ORDERING PHYSICIAN: Bk Morales MD PATIENT AGE: 82 years COMPARISON: None FINDINGS: There are [id number] osteoarthritic changes of the left hip. No fracture or dislocation. No lytic or blastic change. There is generalized vascular calcification. Osteoarthritic changes are also present of the right hip and there are degenerative changes in lower lumbar spine. IMPRESSION: Osteoarthritis of the hips
== END ==
PROVIDERS: PCP Family Medicine; Visit Provider Family Medicine
DX: M25.552 Pain in left hip (principal); M18.12 Unilateral primary osteoarthritis of first carpometacarpal joint, left hand
CPT/HCPCS: 73140; 73502

== ENCOUNTER 2018-10-28 23:54 | Observation (INO) ==
[2018-10-29 00:16] LABS: Basophils % 0.5 % (0.1-2.0); Eosinophils # 0.1 K/mm3 (0.0-0.4); Eosinophils % 1.4 % (0.1-12.0); Hematocrit 39.3 % (42.0-52.0); Hemoglobin 12.9 g/dL (14.1-18.0); Lymphocytes # 3.1 K/mm3 (0.7-4.5); Lymphocytes % 54.4 % (10-50); Mean Corpuscular HGB Conc 32.9 g/dL (31.8-35.4); Mean Corpuscular Hemoglobin 30.7 pg (27.0-31.2); Mean Corpuscular Volume 93.4 fl (80-94); Mean Platelet Volume 9.8 fl (7.4-10.4); Monocytes # 0.4 K/mm3 (0.1-1.0); Monocytes % 6.4 % (1.7-9.3); Neutrophils # 2.1 K/mm3 (1.8-7.8); Neutrophils % 37.3 % (37.0-80.0); Platelet Count 165 K/mm3 (142-424); Red Blood Count 4.21 M/mm3 (4.60-6.20); Red Cell Distribution Width 13.7 % (11.5-17.5); White Blood Count 5.7 K/mm3 (4.8-10.8)
[2018-10-29 00:29] LABS: Blood Urea Nitrogen 22 mg/dL (7-18); Calcium 9.1 mg/dL (8.5-10.1); Carbon Dioxide 27 mmol/L (21.0-32.0); Chloride 101 mmol/L (98-107); Glucose 297 mg/dL (74-106); Sodium 139 mmol/L (136-145)
--- NOTE | 2018-10-29 01:45 | Emergency Department Note ---
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 The time I documented below is in addition to time spent performing reported procedures but includes the following listed in this critical care notation. Medical Decision Making - Medical Records Medical records reviewed: Yes: I reviewed the patient's medical records. - Jean-Claude Inquiry Pt receiving controlled substance: No Vital Signs: 10/28/18 23:54 10/29/18 01:05 Temperature 98 F Temperature Source Oral Pulse Rate [Right Radial] 86 89 Respiratory Rate 16 16 Blood Pressure [Right Arm] 159/76 H 185/95 H Blood Pressure Mean [Right Arm] 103 125 Blood Pressure Source [Right Arm] Automatic Cuff Blood Pressure Position [Right Arm] Sitting 02 Sat by Pulse Oximetry 93 L 93 L Oxygen Delivery Method Room Air Room Air - Lab Data Lab results reviewed: Yes: I reviewed the patient's lab results. Lab Results 10/29/18 00:03: WBC 5.7, RBC 4.21 L, Hgb 12.9 L, Hct 39.3 L, MCV 93.4, MCH 30.7, MCHC 32.9, RDW 13.7, Plt Count 165, MPV 9.8, Neut % (Auto) 37.3, Lymph % (Auto) 54.4 H, [place] % (Auto) 6.4, Eos % (Auto) 1.4, Baso % (Auto) 0.5, Neut # (Auto) 2.1, Lymph # (Auto) 3.1, [place] # (Auto) 0.4, Eos # (Auto) 0.1, Baso # (Auto) 0.0, Total Counted 100, Neutrophils % (Manual) 37 L, Band Neutrophils % 1.0, Lymphocytes % (Manual) 54 H, Monocytes % (Manual) 6, Eosinophils % (Manual) 2, Platelet Estimate Normal, RBC Morphology Normal 10/29/18 00:03: Sodium 139, Potassium 4.0, Chloride 101, Carbon Dioxide 27, Anion Gap 15.0, BUN 22 H, Creatinine 1.06, Estimated Creat Clear 81, Estimated GFR 67, Est GFR ( Amer) 81, Glucose 297 H, Calcium 9.1, Troponin I < 0.02 10/29/18 01:48: Troponin I < 0.02 Result diagrams: 10/29/18 00:03 10/29/18 00:03 Orders (Tests/Meds): ED MEDICATIONS Generic Name Dose Route Start Last Admin Trade Name Freq PRN Reason Stop Dose Admin Sodium Chloride 10 ml 10/29/18 00:03 Saline Flush 10ml Syringe IV 11/28/18 00:02 NEEDED PRN Maintain IV Site Discontinued Medications Generic Name Dose Route Start Last Admin Trade Name Freq PRN Reason Stop Dose Admin Aspirin 162 mg 10/29/18 00:03 10/29/18 00:12 Aspirin 81mg Chewable Tablet PO 10/29/18 00:04 162 mg ONCE ONE Administration Famotidine 20 mg 10/29/18 00:19 10/29/18 00:25 Pepcid 20mg/2ml Vial IV 10/29/18 00:20 20 mg ONCE ONE Administration Metoclopramide HCl 10 mg 10/29/18 00:19 10/29/18 00:28 Reglan 10mg/2ml Vial IVP 10/29/18 00:20 10 mg ONCE ONE Administration ORDERS Category Date Time Status XR chest portable Stat Exams 10/29/18 00:02 Taken - Radiology Data #1 Image(s): Chest Image Reviewed: Yes I reviewed the patient's radiology image Preliminary Findings: Abnormal (cm) - ECG Data Tracing #1 Normal Sinus Rhythm: Yes Ischemic changes: non-specific ST-T wave changes ECG compared to prior tracings: there are no significant changes Chest Pain HPI - General Chief Complaint: Chest Pain Stated Complaint: Chest Pain Time Seen by Provider: 10/29/18 01:41 Mode of Arrival: Ambulatory Limitations: No Limitations Description of Symptoms (Recalled from ER Triage Doc. by RN): Pt reports chest tightness that started "a couple hours ago" pt reports associated diaphoresis, denies shortness of breath, pt states he took 2 81mg ASA prior to arrival and 2 SL Nitrogylcerin, reports pain is non-radiating and stays in the center of his chest - History of Present Illness HPI narrative: epigastric pain with chest tightness MD complaint: chest pain indicative of cardiac Onset (ago): hour(s) Duration: intermittent Activity at onset: during rest Pain location: epigastric Severity: moderate Quality: tightness Relieving factors: nothing Associated symptoms: nausea Risk Factors for CAD: Family Hx of CAD Treatments prior to or on arrival for Cardiac Chest Pain: aspirin, nitroglycerin - AV Score for Non-Stemi Age of Patient: 80-89 years old Heart Rate: 70-89 bpm Systolic Blood Pressure: 140-159 mmHg Serum Creatinine: 0.80-1.19 mg/dl CHF [place] Class: I-No CHF Other Risk Factors: None Non-Stemi Risk Score: 131 - Related Data Prior Cardiac Testing/Procedures: Stenting Home Medications Medication Instructions Recorded Confirmed Aspirin [Aspirin 81mg EC Tab] 81 mg PO DAILY 09/16/17 10/29/18 Cholecalciferol (Vitamin D3) 400 unit PO DAILY 09/16/17 10/29/18 [Vitamin D3] Clopidogrel Bisulfate [Clopidogrel 75 mg PO DAILY 09/16/17 10/29/18 75mg Tab] Cyanocobalamin (Vitamin B-12) 2,500 mcg PO DAILY 09/16/17 10/29/18 [Vitamin B12 2.5mg Tab] Docusate Sodium [Docusate Sodium 100 mg PO BID 09/16/17 10/29/18 100mg Cap] Gabapentin [Gabapentin 300mg Cap] 300 mg PO TID 09/16/17 10/29/18 Polyethylene Glycol 3350 [Miralax 17 gm PO BID 09/16/17 10/29/18 17gm Packet] Tamsulosin HCl [Flomax] 0.4 mg PO DAILY 09/16/17 10/29/18 Torsemide [Demadex] 20 mg PO BID 09/16/17 10/29/18 carvedilol 12.5 mg tablet 12.5 mg PO BID 12/16/17 10/29/18 cranberry fruit concentrate 250 mg 250 mg PO BID tab 12/16/17 10/29/18 chewable tablet lactobacillus combination no.8 3 3,000 mmu cells PO ONCE 12/16/17 10/29/18 billion cell capsule ramipril 10 mg capsule 10 mg PO ONCE 12/16/17 10/29/18 finasteride 5 mg tablet 5 mg PO DAILY tab 02/17/18 10/29/18 glipizide 10 mg tablet 10 mg PO BID 08/25/18 10/29/18 icosapent ethyl 1 gram capsule 2 g PO BID 08/25/18 10/29/18 phenazopyridine 97.5 mg tablet 97.5 mg PO DAILY tab 08/25/18 10/29/18 polyethylene glycol 3350 17 17 g PO DAILY 08/25/18 10/29/18 gram/dose oral powder rosuvastatin 10 mg tablet 10 mg PO DAILY 08/25/18 10/29/18 sitagliptin 100 mg tablet 100 mg PO DAILY 08/25/18 10/29/18 Allergies Allergy/AdvReac Type Severity Reaction Status Date / Time No Known Allergies Allergy Verified 10/29/18 00:15 [facility] History - Hepatitis A Screen Drug use history?: No High risk sexual behaviors?: No History of sexually transmitted infection?: No Currently employed?: No Childcare worker?: No Do you have indoor plumbing?: Yes Do you have electricity?: Yes Attestation statement:: This patient has been screened for Hepatitis A risk factors. I have reviewed the patient's past medical history: Yes Medical History: Reports:: Aneurysm, Atherosclerotic Heart Disease, Cancer, Coronary Artery Disease, Diabetes Mellitus Type 2, Hyperlipidemia, Hypertension Denies:: Diabetes Mellitus Type 1, MRSA Other Medical History: Reports: Arthritis Comment: AMANDA Other Surgeries: Yes: Angiogram, Angioplasty, CABG, Cancer Surgery, Cardiac Catheterization, Coronary Stent, EGD, Other Amputation: No Fractures: No - Social History Smoking Status: Never smoker Alcohol Intake: never Alcohol Intake Frequency:: other Occupational Status: retired Housing: house Household Members: spouse - Psychiatric History Expresses thoughts of harming self/others: None Suicide Plan Description: No Plan Family Hx:: Cancer ROS Obtained: Yes All systems reviewed & no additional complaints - Constitutional Constitutional: Denies fever(s) - Eyes Eyes: Denies change in vision - ENT Ears, Nose, Mouth, and Throat: Denies sore throat - Cardiovascular Cardiovascular: Reports chest pain - Respiratory Respiratory: No cough - Gastrointestinal Gastrointestingal: Denies: abdominal pain - Genitourinary Male Genitourinary: Denies hematuria - Musculoskeletal Musculoskeletal: Denies joint pain - Integumentary/Breasts Skin/Breast: Denies rash - Neurologic Neurologic: Denies seizure-like activity Physical Exam - General General appearance: alert - Head Head exam: normocephalic - Eye Eye exam: Present: PERRL, EOMI - ENT ENT exam: Present: mucous membranes moist - Neck Neck exam: Present: trachea midline - Respiratory Respiratory exam: Absent: respiratory distress - Cardiovascular Cardiovascular exam: Present: regular rate, systolic murmur - Abdominal Exam Abdominal exam: Present: soft - Neurological Exam Neurological exam: Present: alert, CN II-XII intact - Psychiatric Psychiatric exam: Present: normal affect - Skin Skin exam: Absent: rash
[2018-10-29 02:32] LABS: Eosinophils % 2 % (0-3); Lymphocytes % 54 % (10-50); Monocytes % 6 % (2-9); Neutrophils % 37 % (42-76); RBC Morphology Normal; Total Cells Counted 100
--- NOTE | 2018-10-29 07:22 | H&P/Discharge Summary ---
General - General Admission date:: 10/29/18 Discharge date: 10/29/18 *Admission Date: 10/29/18 *Chief complaint: Indigestion and chest pressure *History of present illness: 83-year-old male with history of coronary artery disease presented to the emergency department with epigastric and lower chest pressure. Patient has been having recurring bouts of epigastric bloating and pressure in the epigastrium radiating up into the chest associated with meals occurring about 3 times per week. Yesterday evening he developed an episode of this chest pressure. Usually will respond to Mylanta. When it did not respond to Mylanta the patient began to worry more and more as the evening progressed so ultimately he presented to the emergency department. In the emergency department he was evaluated. He was given Pepcid intravenously. He believes this actually caused the epigastric and chest pressure to resolve. First troponin was negative and EKG showed no acute changes. Patient was admitted for rule out of an UT. Since receiving Pepcid in the emergency department he is asymptomatic [facility] History I have reviewed the patient's past medical history: Yes Medical History: Reports:: Aneurysm (Abdominal), Atherosclerotic Heart Disease, Cancer (Skin), Coronary Artery Disease, Diabetes Mellitus Type 2, Hyperlipidemia, Hypertension, Myocardial Infarction Denies:: Diabetes Mellitus Type 1, MRSA *Have you ever received a pneumonia vaccine?: Yes *Have you received a flu vaccine this season?: Yes Other Medical History: Reports: Arthritis Other Surgeries: Yes: Angiogram, Angioplasty, CABG, Cancer Surgery, Cardiac Catheterization, Cholecystectomy, Colonoscopy, Coronary Stent, EGD, Skin Cancer Excision, Other (Back Surgery) Amputation: No Fractures: No - *Social History Educational Level: Completed College Smoking Status: Never smoker Alcohol Intake: never Alcohol Intake Frequency:: other *Occupational Status:: employed, retired Housing: house Household Members: spouse *Travel in the last 8 weeks: None - Psychiatric History Expresses thoughts of harming self/others: None Suicide Plan Description: No Plan Family Hx:: Cancer, Coronary Artery Disease Review of Systems - Review of Systems Review of systems:: pertinent systems reviewed and negative unless documented below - Constitutional Denies body ache(s), Denies chills - *Cardiovascular Comments: Chest pressure at rest - *Respiratory Denies cough, Denies shortness of breath - *Gastrointestinal Reports belching, Reports bloating, Reports heartburn, Denies abdominal pain - *Neurologic Denies seizure-like activity Exam Vital signs and Labs for Last 24 Hours: Temp Pulse Resp BP Pulse Ox 98.3 F 61 16 146/62 H 95 10/29/18 03:13 10/29/18 03:31 10/29/18 03:13 10/29/18 03:13 10/29/18 03:31 Laboratory Results - last 24 hr 10/29/18 00:03: WBC 5.7, RBC 4.21 L, Hgb 12.9 L, Hct 39.3 L, MCV 93.4, MCH 30.7, MCHC 32.9, RDW 13.7, Plt Count 165, MPV 9.8, Neut % (Auto) 37.3, Lymph % (Auto) 54.4 H, [place] % (Auto) 6.4, Eos % (Auto) 1.4, Baso % (Auto) 0.5, Neut # (Auto) 2.1, Lymph # (Auto) 3.1, [place] # (Auto) 0.4, Eos # (Auto) 0.1, Baso # (Auto) 0.0, Total Counted 100, Neutrophils % (Manual) 37 L, Band Neutrophils % 1.0, Lymphocytes % (Manual) 54 H, Monocytes % (Manual) 6, Eosinophils % (Manual) 2, Platelet Estimate Normal, RBC Morphology Normal 10/29/18 00:03: Sodium 139, Potassium 4.0, Chloride 101, Carbon Dioxide 27, Anion Gap 15.0, BUN 22 H, Creatinine 1.06, Estimated Creat Clear 81, Estimated GFR 67, Est GFR ( Amer) 81, Glucose 297 H, Calcium 9.1, Troponin I < 0.02 10/29/18 01:48: Troponin I < 0.02 10/29/18 05:50: POC Glucose 161 H I & O for Last 24 hours: Intake & Output 10/26/18 10/27/18 10/28/18 10/29/18 11:59 11:59 11:59 11:59 Weight 225 lb - Constitutional no acute distress - *Routine HEENT Exam Head: Present: normocephalic ENT: Present: mucous membranes moist - *Routine Neck Exam Absent: JVD, carotid bruit - *Routine Respiratory Exam Present: CTA bilaterally - *Routine Cardiovascular Exam Present: Normal S1, Normal S2. Absent: murmur Hospital Course Hospital Course: Patient was admitted for rule out of an UT. After Pepcid in the emergency department he remained asymptomatic. He had serial troponins drawn 3 hours apart which were both negative. Patient was discharged to home. There have been no changes in his medications Results Labs on day of discharge: Labs from last 24 hours 10/29/18 10/29/18 10/29/18 05:50 01:48 00:03 WBC RBC Hgb Hct MCV MCH MCHC RDW Plt Count MPV Neut % (Auto) Lymph % (Auto) [place] % (Auto) Eos % (Auto) Baso % (Auto) Neut # (Auto) Lymph # (Auto) [place] # (Auto) Eos # (Auto) Baso # (Auto) Total Counted Neutrophils % (Manual) Band Neutrophils % Lymphocytes % (Manual) Monocytes % (Manual) Eosinophils % (Manual) Platelet Estimate RBC Morphology Sodium 139 Potassium 4.0 Chloride 101 Carbon Dioxide 27 Anion Gap 15.0 BUN 22 H Creatinine 1.06 Estimated Creat Clear 81 Estimated GFR 67 Est GFR ( Amer) 81 Glucose 297 H POC Glucose 161 H Calcium 9.1 Troponin I < 0.02 < 0.02 10/29/18 00:03 WBC 5.7 RBC 4.21 L Hgb 12.9 L Hct 39.3 L MCV 93.4 MCH 30.7 MCHC 32.9 RDW 13.7 Plt Count 165 MPV 9.8 Neut % (Auto) 37.3 Lymph % (Auto) 54.4 H [place] % (Auto) 6.4 Eos % (Auto) 1.4 Baso % (Auto) 0.5 Neut # (Auto) 2.1 Lymph # (Auto) 3.1 [place] # (Auto) 0.4 Eos # (Auto) 0.1 Baso # (Auto) 0.0 Total Counted 100 Neutrophils % (Manual) 37 L Band Neutrophils % 1.0 Lymphocytes % (Manual) 54 H Monocytes % (Manual) 6 Eosinophils % (Manual) 2 Platelet Estimate Normal RBC Morphology Normal Sodium Potassium Chloride Carbon Dioxide Anion Gap BUN Creatinine Estimated Creat Clear Estimated GFR Est GFR ( Amer) Glucose POC Glucose Calcium Troponin I DS: Diagnosis - Discharge Diagnosis (1) Chest pain Status: Acute (2) GERD without esophagitis Status: Acute (3) Functional dyspepsia Status: Acute Discharge Medications - Medications for Discharge Home Medication List at Discharge: No Action carvedilol 12.5 mg tablet 12.5 mg PO BID ramipril 10 mg capsule 10 mg PO ONCE cranberry fruit concentrate 250 mg chewable tablet 250 mg PO BID tab lactobacillus combination no.8 3 billion cell capsule 3,000 mmu cells PO ONCE rosuvastatin 10 mg tablet 10 mg PO DAILY sitagliptin 100 mg tablet 100 mg PO DAILY phenazopyridine 97.5 mg tablet 97.5 mg PO DAILY tab polyethylene glycol 3350 17 gram/dose oral powder 17 g PO DAILY finasteride 5 mg tablet 5 mg PO DAILY tab glipizide 10 mg tablet 10 mg PO BID icosapent ethyl 1 gram capsule 2 g PO BID Aspirin [Aspirin 81mg EC Tab] 81 mg PO DAILY Clopidogrel Bisulfate [Clopidogrel 75mg Tab] 75 mg PO DAILY Torsemide [Demadex] 20 mg PO BID Tamsulosin HCl [Flomax] 0.4 mg PO DAILY Gabapentin [Gabapentin 300mg Cap] 300 mg PO TID Cyanocobalamin (Vitamin B-12) [Vitamin B12 2.5mg Tab] 2,500 mcg PO DAILY Cholecalciferol (Vitamin D3) [Vitamin D3] 400 unit PO DAILY Docusate Sodium [Docusate Sodium 100mg Cap] 100 mg PO BID Polyethylene Glycol 3350 [Miralax 17gm Packet] 17 gm PO BID Disposition Disposition: Home, Self-Care
[2018-10-29 07:35] LABS: Basophils % 0.7 % (0.1-2.0); Eosinophils # 0.1 K/mm3 (0.0-0.4); Eosinophils % 1.5 % (0.1-12.0); Hematocrit 37.4 % (42.0-52.0); Hemoglobin 12.5 g/dL (14.1-18.0); Lymphocytes # 3.8 K/mm3 (0.7-4.5); Lymphocytes % 60.7 % (10-50); Mean Corpuscular HGB Conc 33.3 g/dL (31.8-35.4); Mean Corpuscular Volume 92.9 fl (80-94); Mean Platelet Volume 9.9 fl (7.4-10.4); Monocytes # 0.4 K/mm3 (0.1-1.0); Monocytes % 5.9 % (1.7-9.3); Neutrophils # 1.9 K/mm3 (1.8-7.8); Neutrophils % 31.1 % (37.0-80.0); Platelet Count 161 K/mm3 (142-424); Red Blood Count 4.02 M/mm3 (4.60-6.20); Red Cell Distribution Width 13.7 % (11.5-17.5); White Blood Count 6.2 K/mm3 (4.8-10.8)
--- NOTE | 2018-10-29 07:36 | Pharmacy Consult Notes ---
[facility] Pharmacy VTE Monitoring - Patient Demographics Admission date: 10/29/18 Report Date: 10/29/18 Time: 07:36 Allergies/Adverse Reactions: Patient Allergies No Known Allergies Allergy (Verified 10/29/18 00:15) Height: 1.78 m Weight: 102.058 kg Patient Problems: Current Active Problems Diabetes type 2, controlled (Acute) Chest pain (Acute) Obesity (BMI 30.0-34.9) (Acute) GERD without esophagitis (Acute) Functional dyspepsia (Acute) - VTE Risk Labs: VTE Related Lab Results Hgb 12.9 g/dL (14.1-18.0) L 10/29/18 00:03 Hct 39.3 % (42.0-52.0) L 10/29/18 00:03 Plt Count 165 K/mm3 (142-424) 10/29/18 00:03 BUN 22 mg/dL (7-18) H 10/29/18 00:03 Creatinine 1.06 mg/dL (0.70-1.30) 10/29/18 00:03 Estimated Creat Clear 81 mL/min (50-200) 10/29/18 00:03 Was VTE Risk Assessment Performed: Yes VTE Score: 5 VTE Risk Level: Low Risk - Prophylaxis VTE Prophylaxis Ordered?: Yes Types of VTE Prophylaxis: TEDS Knee High Location of Applied Device: Bilateral Lower Extremeties - VTE Diagnosis Confirmed Treatment or plan recommended: Continue Current Treatment
[2018-10-29 09:37] LABS: Anion Gap 14.5 mEq/L (5-15); Calcium 9.2 mg/dL (8.5-10.1); Potassium 4.5 mmoL/L (3.5-5.1)
== END 2018-10-29 10:51 | disposition home or self-care (01) ==
LOC: 2ND 23:54 → ER 23:54 → 2ND 10-29 03:12
PROVIDERS: ADMIT Emergency Medicine; ATTEND Family Medicine
CPT/HCPCS: 36415; 71010; 71045; 80048; 82962; 83735; 84484; 85007; 85025; 93005; 99284; G0378

== ENCOUNTER → 2019-01-06 13:19 | Outpatient (CLI) | payer MEDICARE, SELFPAY ==
--- NOTE | 2019-01-06 13:25 | CI_ITS ---
Cerebrovascular Exam Indications: 780.4 Dizziness and giddiness. 780.4 Vertigo. IMPRESSIONS 1. The bilateral vertebral arteries are patent with normal antegrade flow. 2. Study suggests 20-49% stenosis involving the right internal carotid artery. 3. Study suggests 50-69% stenosis involving the left internal carotid artery. 4. Tortuous carotid arteries seen bilaterally. Carotid duplex study. Complete study and Doppler flow study including spectral analysis, color and dempsey scale imaging. Height: Height: 177.8cm. Height: 70in. Weight: Weight: 95.3kg. Weight: 209.6lb. Body mass index: BMI: 30.1kg/m^2. Body surface area: BSA: 2.19m^2. Location: Vascular laboratory. Patient status: Outpatient. Tables: Arterial flow: + +--------+--------+ Location V sys V ed + +--------+--------+ Right CCA - proximal 90.4cm/s 13.4cm/s + +--------+--------+ Right CCA - distal 93.5cm/s 15.7cm/s + +--------+--------+ Right ECA 104cm/s -------- + +--------+--------+ Right ICA - proximal 75.1cm/s 16.6cm/s + +--------+--------+ Right ICA - mid 61.1cm/s 14cm/s + +--------+--------+ Right ICA - distal 94.5cm/s 28.7cm/s + +--------+--------+ Right vertebral 35.4cm/s -------- + +--------+--------+ Left CCA - proximal 135cm/s 21.6cm/s + +--------+--------+ Left CCA - distal 116cm/s 18.2cm/s + +--------+--------+ Left ECA 116cm/s -------- + +--------+--------+ Left ICA - proximal 148cm/s 21cm/s + +--------+--------+ Left ICA - mid 79.5cm/s 17.5cm/s + +--------+--------+ Left ICA - distal 71.6cm/s 23.6cm/s + +--------+--------+ Left vertebral 38.8cm/s -------- + +--------+--------+ Velocity ratios: + + + + + + Right, V sys Right, V ed Left, V sys Left, V ed + + + + + + Max ICA/dist CCA 1.01 1.83 1.28 1.3 + + + + + + (Report amended ) Electronically signed by: Jeremiah Staley [id number]
== END ==
PROVIDERS: PCP Nurse Practitioner Family; Visit Provider Nurse Practitioner Family
DX: R42 Dizziness and giddiness (principal); I10 Essential (primary) hypertension; E78.00 Pure hypercholesterolemia, unspecified; I25.10 Atherosclerotic heart disease of native coronary artery without angina pectoris
CPT/HCPCS: 93880

== ENCOUNTER → 2019-03-02 16:48 | Outpatient (CLI) | payer MEDICARE, SELFPAY | LOC: LAB 16:49 → LAB.DROPOF 17:21 | PROVIDERS: Visit Provider Urology | DX: R39.89 Other symptoms and signs involving the genitourinary system (principal) | CPT/HCPCS: 87086 ==

== ENCOUNTER → 2019-03-23 16:07 | Outpatient (CLI) | payer MEDICARE, SELFPAY | PROVIDERS: Visit Provider Urology | DX: N40.1 Benign prostatic hyperplasia with lower urinary tract symptoms (principal); R39.12 Poor urinary stream | CPT/HCPCS: 87086 ==

== ENCOUNTER 2019-03-26 09:30 | Outpatient (RCR) | payer MEDICARE, SELFPAY ==
--- NOTE | 2019-03-04 14:19 | [facility].PTOPWND ---
Rehab Outpt Wound Evaluation Rehab OP Wound Evaluation Start: 03/04/19 13:50 Freq: Status: Active Protocol: Document 03/04/19 14:09 BISI (Rec: 03/04/19 14:19 PHORNE [id number]) Electronically Signed By Juan C Vargas, PT 03/04/19 14:09 Subjective/History History History Pt is 83 yowm who presents with right buttock wound x ~ 2 yrs per his report. He states the wound has been unchanged for quite some time and is not painful, but is sore to the touch. He reports he has been using a cream that was prescribed by his MD with little change to the wound. He reports the wound began due to pressure from excessive sitting. He has hx of DM-II, CAD, HL, HTN, CABG, aneurysm, carotid stenosis. Subjective Subjective Pt with chronic pressure ulcer x ~ 2 yrs with little to no change in that time. Wound Eval Wound Right Medial Buttock Wound Type Stasis Ulcer Is This a Chronic Wound Yes Wound Staging Stage II Query Text:Stage I - Unbroken, red skin, no blanching. Stage II - Skin broken, superficial skin loss involving epidermis alone or also dermis. Partial loss of skin layers. Stage III - Pressure area involves epidermis, dermis and subcutaneous tissue, full thickness skin loss. Stage IV - Pressure area involves epidermis, subcutaneous tissue, bone and other supportive tissue. Full thickness skin loss with extensive destruction of underlying tissue and structures. Wound Length (cm) 1.1 Wound Width (cm) 1.0 Wound Bed Appearance [place]rick,White Percentage Granulated (%) 100 Wound Margins Description Well Defined Surrounding Tissue Appearance [place],Dark Red Drainage Amount None Dressing Status Open to Air Wound Topical Solution/Irrigant Saline Irrigant Primary Dressing collagen Comment puracol Wound Secondary Dressing Type Hydrocolloid Wound Debridement Method Sharps,Gauze Wound Debridement Amount of Tissue Minimal Removed Dressing Change Patient Tolerance Tolerated Well Wound Problems/Impairments Impairments Problems/Impairmments
== END 2019-03-26 09:35 | disposition home or self-care (01) ==
LOC: PT 09:30
PROVIDERS: Visit Provider Urology
DX: L98.411 Non-pressure chronic ulcer of buttock limited to breakdown of skin (principal)
CPT/HCPCS: 97162; 97597

== ENCOUNTER → 2019-06-22 17:16 | Outpatient (CLI) | payer MEDICARE, SELFPAY | PROVIDERS: Visit Provider Urology | DX: N40.1 Benign prostatic hyperplasia with lower urinary tract symptoms (principal) | CPT/HCPCS: 87086 ==

== ENCOUNTER → 2020-05-02 10:34 | Outpatient (POV) | payer MEDICARE, SELFPAY | PROVIDERS: PCP Family Medicine; Visit Provider Dermatology | DX: Z00.00 Encounter for general adult medical examination without abnormal findings (principal) ==

== ENCOUNTER 2020-06-15 14:19 | Emergency (ER) | payer OTHER, MEDICARE, SELFPAY ==
[2020-06-15 14:19] VITALS: BP 149/78; PULSE 64; RESP 16; TEMP 36.6; O2SAT 98; BMI 30.4
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
[2020-06-15 15:28] VITALS: BP 163/74; PULSE 65; RESP 16; TEMP 36.6; O2SAT 98
== END 2020-06-15 15:29 | disposition home or self-care (01) ==
PROVIDERS: Emergency Provider Emergency Medicine; PCP Family Medicine
DX: R07.89 Other chest pain (principal); V43.52XA Car driver injured in collision with other type car in traffic accident, initial encounter; Y92.414 Local residential or business street as the place of occurrence of the external cause
CPT/HCPCS: 71046; 99282

== ENCOUNTER → 2020-09-05 07:45 | Outpatient (CLI) | payer MEDICARE, SELFPAY ==
--- NOTE | 2020-09-05 08:03 | CT_ITS ---
PROCEDURE: CT ABDOMEN PELVIS WO/W CON CLINICAL INDICATION: Follow up aaa Follow-up abdominal aortic aneurysm COMPARISON: CT CTAA CTA-ABDOMEN from 11/23/2012 CT ABDPELW/O CT ABD PELVIS W/O CONTRAST from 01/03/2015 CT ABDPELW/O CT ABD PELVIS W/O CONTRAST from 03/09/2017 TECHNIQUE: IV Contrast: 75ML Isovue 370 Oral Contrast None Axial images obtained with sagittal and coronal reformats. All CT scans at the facility use one or more dose reduction, viz: automated exposure control, ma/kV adjustment per patient size (including targeted exams where dose is matched to indication, i.e. head), or iterative reconstruction technique. FINDINGS: LOWER THORAX: There has been a prior CABG. Coronary artery calcifications are present. ABDOMEN & PELVIS: Fatty liver. Hypodense hepatic lesions once again noted unchanged. There has been a prior cholecystectomy. There is a small hiatal hernia. The spleen, adrenal glands and pancreas have an unremarkable appearance. There are bilateral renal cysts. Right lower quadrant subcutaneous metallic device present. No intestinal obstruction or free air. No evidence of appendicitis. Scattered colonic diverticula without evidence of diverticulitis. There are some fluid-filled loops of small bowel which are nondistended which is nonspecific. There is an infrarenal abdominal aortic aneurysm which measures 4.7 cm in AP dimension and 4.5 cm transverse previously 4 cm in AP dimension. No evidence of acute retroperitoneal hemorrhage. The aneurysm ends just proximal to the aortic bifurcation. 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 Infrarenal abdominal aortic aneurysm 4.7 x 4.5 cm previously 4 by 4.2 x 4 cm 2. Other nonacute findings as described above Dictated by: Jeremiah Staley MD 09/06/2020 10:06 Jeremiah Staley MD in [place] 09/06/2020 10:06
[2020-09-05 08:12] LABS: Blood Urea Nitrogen 20 mg/dl (9-20); Estimated Glomerular Filt Rate 72 ml/min (>60); GFR (African American) 87 ML/MIN (>60)
== END ==
PROVIDERS: PCP Family Medicine; Visit Provider Thoracic Surgery (Cardiothoracic Vascular Surgery)
DX: I71.4 Abdominal aortic aneurysm, without rupture (principal)
CPT/HCPCS: 36415; 74178; 82565; 84520; Q9967

== ENCOUNTER → 2021-04-07 11:05 | Outpatient (CLI) | payer MEDICARE, SELFPAY | PROVIDERS: Visit Provider Ophthalmology | DX: Z01.812 Encounter for preprocedural laboratory examination (principal); Z20.822 Contact with and (suspected) exposure to COVID-19 | CPT/HCPCS: U0003 ==

== ENCOUNTER 2021-04-10 08:06 | Day surgery (SDC) | payer MEDICARE, SELFPAY ==
[2021-04-06 08:50] VITALS: BMI 31.5
[2021-04-10] VITALS (7 sets, daily range): BP systolic 132–147; BP diastolic 60–83; PULSE 57–69; RESP 16–18; TEMP 36.1–36.4; O2SAT 93–100
[2021-04-10 09:01] LABS: POC Glucose,Bedside 122 (70-110)
== END 2021-04-10 11:05 | disposition home or self-care (01) ==
LOC: OR 08:07
PROVIDERS: PCP Family Medicine; Visit Provider Ophthalmology
DX: H25.813 Combined forms of age-related cataract, bilateral (principal); H53.149 Visual discomfort, unspecified; H02.831 Dermatochalasis of right upper eyelid; H02.834 Dermatochalasis of left upper eyelid; H57.03 Miosis; M19.90 Unspecified osteoarthritis, unspecified site; I25.10 Atherosclerotic heart disease of native coronary artery without angina pectoris; E11.9 Type 2 diabetes mellitus without complications; I10 Essential (primary) hypertension; E78.5 Hyperlipidemia, unspecified; Z86.79 Personal history of other diseases of the circulatory system; Z95.1 Presence of aortocoronary bypass graft
CPT/HCPCS: 66982; 82962; V2632

== ENCOUNTER → 2021-04-28 10:14 | Outpatient (CLI) | payer MEDICARE, SELFPAY | PROVIDERS: Visit Provider Ophthalmology | DX: Z01.812 Encounter for preprocedural laboratory examination (principal); Z11.52 Encounter for screening for COVID-19; U07.1 COVID-19 | CPT/HCPCS: C9803; U0003; U0005 ==

== ENCOUNTER 2021-05-29 08:42 | Day surgery (SDC) | payer MEDICARE, SELFPAY ==
[2021-05-23 15:19] VITALS: BMI 31.4
[2021-05-29] VITALS (8 sets, daily range): BP systolic 130–142; BP diastolic 64–70; PULSE 52–60; RESP 18; TEMP 36.2–36.6; O2SAT 94–98
[2021-05-29 10:02] LABS: POC Glucose,Bedside 113 (70-110)
== END 2021-05-29 11:14 | disposition home or self-care (01) ==
LOC: OR 08:44
PROVIDERS: PCP Family Medicine; Visit Provider Ophthalmology
DX: H25.813 Combined forms of age-related cataract, bilateral (principal); H02.831 Dermatochalasis of right upper eyelid; H02.834 Dermatochalasis of left upper eyelid; I25.10 Atherosclerotic heart disease of native coronary artery without angina pectoris; E11.9 Type 2 diabetes mellitus without complications; I10 Essential (primary) hypertension; E78.5 Hyperlipidemia, unspecified; M19.90 Unspecified osteoarthritis, unspecified site; Z95.1 Presence of aortocoronary bypass graft; Z86.79 Personal history of other diseases of the circulatory system; Z79.899 Other long term (current) drug therapy; H21.81 Floppy iris syndrome
CPT/HCPCS: 66984; 82962; V2632

== ENCOUNTER → 2021-06-19 15:29 | Outpatient (POV) | payer MEDICARE, SELFPAY | PROVIDERS: Visit Provider Dermatology | DX: Z00.00 Encounter for general adult medical examination without abnormal findings (principal) ==

== ENCOUNTER 2021-07-05 09:52 | Outpatient (RCR) | payer MEDICARE, SELFPAY | END 2021-11-13 14:25 | disposition home or self-care (01) | LOC: PT 09:52 | PROVIDERS: Visit Provider Internal Medicine Cardiovascular Disease | DX: I25.10 Atherosclerotic heart disease of native coronary artery without angina pectoris (principal); Z95.5 Presence of coronary angioplasty implant and graft | CPT/HCPCS: 93798 ==

== ENCOUNTER → 2021-08-20 08:13 | Outpatient (CLI) | payer MEDICARE, SELFPAY ==
--- NOTE | 2021-08-20 08:36 | CT_ITS ---
FINAL REPORT TECHNIQUE: After the administration of oral and intravenous contrast, axial images were obtained through the abdomen and pelvis by computed tomography. The study was performed with techniques to keep radiation dose as low as reasonably achievable, (ALARA). Individual dose reduction techniques using automated exposure control or adjustment of mA and/or kV according to the patient's size were employed. CLINICAL HISTORY: AAA follow up monitoring it COMPARISON: There are no prior images for comparison. FINDINGS: Abdomen: There are calcified granulomas in the left lung base. There are well-circumscribed, low-attenuation structures in the left lobe of the liver probably related to benign cysts. The gallbladder is surgically absent. The spleen, pancreas, and adrenal glands are unremarkable. There is a small sliding-type hiatal hernia. There are benign appearing exophytic cysts arising from both kidneys measuring up to 2.5 cm in greatest dimension. There is an infrarenal abdominal aortic aneurysm measuring 5.2 x 4.7 cm in AP and transverse dimension. There is dense vascular calcification within tortuous iliac vessels. However, no discrete aneurysm is seen. There is moderate vascular calcification in the common femoral arteries bilaterally. Incidental note is made of dense vascular calcification at the origin of the SMA. Underlying significant stenosis of the SMA is not excluded. Pelvis: The appendix is not identified. The urinary bladder is unremarkable. There is no free fluid or adenopathy. There are advanced degenerative changes in the lumbar spine. IMPRESSION: 1. Benign appearing cysts in the left lobe of the liver. 2. Benign-appearing cyst cysts in both kidneys. 3. Abdominal aortic aneurysm measuring 5.2 x 4.7 cm in AP and transverse dimension. Reviewed, Interpreted and Dictated by Marco Boo MD Transcribed by Roya Navarrete Authenticated by Marco Boo MD on 08/20/2021 10:58:33 AM [facility]
[2021-08-20 08:42] LABS: Blood Urea Nitrogen 26 mg/dl (9-20); Estimated Glomerular Filt Rate 81 ml/min (>60); GFR (African American) 98 ML/MIN (>60)
== END ==
PROVIDERS: PCP Family Medicine; Visit Provider Thoracic Surgery (Cardiothoracic Vascular Surgery)
DX: I71.4 Abdominal aortic aneurysm, without rupture (principal)
CPT/HCPCS: 36415; 74177; 82565; 84520; Q9967

== ENCOUNTER → 2022-01-15 10:53 | Outpatient (POV) | payer MEDICARE, SELFPAY | PROVIDERS: Visit Provider Dermatology | DX: Z00.00 Encounter for general adult medical examination without abnormal findings (principal) ==

== ENCOUNTER → 2022-01-22 16:38 | Outpatient (CLI) | payer MEDICARE, SELFPAY | PROVIDERS: PCP Nurse Practitioner Family; Visit Provider Nurse Practitioner Family | DX: B35.1 Tinea unguium (principal) | CPT/HCPCS: 87102; 87206; 87220; 88304; 88311; 88312 ==

== ENCOUNTER → 2022-01-22 16:53 | Outpatient (CLI) | payer MEDICARE, SELFPAY | PROVIDERS: Visit Provider Podiatrist | DX: B35.1 Tinea unguium (principal) | CPT/HCPCS: 88304; 88311; 88312 ==

== ENCOUNTER 2022-02-01 08:00 | Outpatient (RCR) | payer MEDICARE, SELFPAY | END 2022-02-01 08:05 | disposition home or self-care (01) | LOC: OT 08:00 | PROVIDERS: Visit Provider Family Medicine | DX: G56.01 Carpal tunnel syndrome, right upper limb (principal) | CPT/HCPCS: 97010; 97014; 97035; 97110; 97140; 97164; 97165; 97530; G0283 ==

== ENCOUNTER → 2022-02-07 09:09 | Outpatient (CLI) | payer MEDICARE, SELFPAY ==
--- NOTE | 2022-02-07 09:15 | CT_ITS ---
FINAL REPORT TECHNIQUE: Axial CT images were performed through the abdomen pelvis utilizing a CTA protocol. Coronal and sagittal reformatted images were submitted. This study was performed with techniques to keep radiation doses as low as reasonably achievable (ALARA). Individualized dose reduction techniques using automated exposure control or adjustment of mA and/or kV according to the patient's size were employed. CLINICAL HISTORY: .AAA W/O RUPTURE FOLLOW-UP COMPARISON: August 20, 2021 FINDINGS: CTA: The abdominal aorta is aneurysmally dilatated at 5.2 cm but stable. The aneurysm arises 2.4 cm inferior to the renal arteries and extends to the bifurcation. 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 There is a left common iliac artery aneurysm measuring 1.9 cm. The SMA, celiac axis, and ANGELIQUE are patent. There is no significant stenosis or calcification. The renal arteries are patent bilaterally. ABDOMEN: There is mild bibasilar atelectasis. There are several calcified granulomas. There are several presumed hepatic cysts. There is a small focus of enhancement in the right hepatic lobe favoring a (ARDEN) transient hepatic attenuation difference. Postoperative changes are seen from cholecystectomy. The spleen is unremarkable. The adrenals are normal. The pancreas is unremarkable. There are several renal cysts. The aorta is normal in caliber. No free fluid or adenopathy is identified. No findings for mechanical bowel obstruction are identified. PELVIS: The appendix is not identified. The urinary bladder is unremarkable. No free fluid, free air, abscess or adenopathy is identified. IMPRESSION: Stable abdominal aortic aneurysm. Renal and hepatic cysts. Reviewed, Interpreted and Dictated by Isauro Miller III, MD Transcribed by Darryl Liu Authenticated and [facility]
[2022-02-07 09:52] LABS: Blood Urea Nitrogen 17 mg/dl (9-20); Estimated Glomerular Filt Rate 71 ml/min (>60); GFR (African American) 86 ML/MIN (>60)
== END ==
PROVIDERS: PCP Family Medicine; Visit Provider Family Medicine
DX: I71.4 Abdominal aortic aneurysm, without rupture (principal)
CPT/HCPCS: 36415; 74174; 82565; 84520; Q9967

== ENCOUNTER → 2022-07-16 10:29 | Outpatient (POV) | payer MEDICARE, SELFPAY | PROVIDERS: Visit Provider Dermatology | DX: Z00.00 Encounter for general adult medical examination without abnormal findings (principal) ==

== ENCOUNTER 2022-09-25 12:16 | Emergency (ER) | payer MEDICARE, SELFPAY ==
[2022-09-25 12:34] VITALS: BP 149/71; PULSE 84; RESP 18; TEMP 36.9; O2SAT 93; BMI 36.0
--- NOTE | 2022-09-25 12:52 | EXP.UTC ---
Discharge Plan Disposition Patient Disposition: Home, Self-Care Condition: Good Prescriptions Prescriptions: New cefdinir 300 mg capsule 300 mg PO BID Qty: 20 0RF No Action carvedilol 12.5 mg tablet 12.5 mg PO BID lactobacillus combination no.8 [Adult Probiotic] 3 billion cell capsule 3,000 mmu cells PO ONCE finasteride 5 mg tablet 5 mg PO DAILY Jardiance 25 mg tablet 25 mg PO DAILY gabapentin 400 mg capsule 400 mg PO TID ramipril 5 mg capsule 5 mg PO DAILY potassium chloride 20 mEq tablet,ER particles/crystals PO triamcinolone acetonide 0.1 % cream TP finasteride 5 mg tablet 5 mg PO DAILY nitroglycerin 0.4 mg tablet, sublingual 0.4 mg SL Q5M PRN Rx Instructions: do not exceed 3 doses per episode icosapent ethyl [Vascepa] 1 gram capsule 2 g PO BID Ozempic 0.25 mg or 0.5 mg(2 mg/1.5 mL) pen injector 0.25 mg SQ WEEKLY glipizide 10 mg tablet 10 mg PO BID rosuvastatin 10 mg tablet 10 mg PO DAILY Januvia 100 mg tablet 100 mg PO DAILY polyethylene glycol 3350 [Miralax] 17 gram/dose powder 17 g PO DAILY fluticasone propionate 50 mcg/actuation spray,suspension intranasal hydromorphone in 0.9 % NaCl 10 MG/50 ML prefilled pump reservoir 10.983 mg SQ DAILY bupivacaine (PF) 120 ML elastomeric pump,fixed rate 10.983 mg SQ DAILY amlodipine 2.5 MG tablet 2.5 mg PO DAILY icosapent ethyl 1 GM capsule 2 g PO BID torsemide 20 MG tablet 20 mg PO BID clopidogrel 75 MG tablet 75 mg PO DAILY aspirin 81 MG tablet,delayed release (DR/EC) 81 mg PO DAILY tamsulosin 0.4 MG capsule 0.4 mg PO DAILY cholecalciferol (vitamin D3) 400 UNIT capsule 400 unit PO DAILY Referrals Follow up/Referrals: Bk Morales MD [Primary Care Provider] - See instructions Activity Restrictions/Add. Instructions Additional Instructions/Restrictions: *Increase fluids. Water not Soda or Tea *Start antibiotic tomorrow and be sure to take as ordered for the FULL length of time although you should start to see improvement over the next 48 hour *Be SURE to follow up anytime for new or worsening symptoms with your family doctor. AND in 48 hours for urine culture results with your family doctor, if you do not have a doctor then you may call back to the [facility] for urine culture results and further treatment. We do recommend that you choose and establish care with a Primary Care Physician. ?AND follow up with them ?in 10-14 days to repeat UA to ensure infection is resolved and blood no longer present *Be sure to let your PCP know that we sent urine cultures from the [facility] so they can follow up to ensure that you area the on the correct antibiotic Call your doctor office and make appointment for 48 hours (2 days from today) ?to follow up and get the results of your urine culture and further treatment Clinical Impressions Clinical Impression: UTI (urinary tract infection) Qualifiers: Urinary tract infection type: site unspecified Hematuria presence: without hematuria Qualified Code(s): N39.0 - Urinary tract infection, site not specified Instructions Patient Instructions: DI for Urinary Tract Infection (UTI), Cefdinir Discharge ED Provider: Roxanna Bowen [facility] [place] General Stated complaint: Abd pain burning in groin Mode of Arrival: Wheelchair Source of Information: Patient Limitations: No Limitations Time Seen by Provider: 09/25/22 12:52 Description of Symptoms (Recalled from Triage Doc. by RN): Pt reports burning in groin area and difficulty with urination. Pt reports pain with urination. History of Present Illness Provider Complaint: Patient states that he has been having burning in groin area with urination and feeling of pressure in lower abdomen States that he felt like he could only go in small amounts this morning so he took a Torsemide and it did help with
[2022-09-25 12:53] VITALS: BP 149/71; PULSE 84; RESP 18; TEMP 36.9; O2SAT 94; BMI 15.7
[2022-09-25 12:53] LABS: Apearance,Urine Clear (Clear); Bilirubin,Urine Negative (Negative); Blood, Urine Negative (Negative); Color,Urine Orange (Yellow); Glucose,Urine (UA) Negative (Negative); Ketones,Urine Negative (Negative); Protein,Urine Negative (Negative); Specific Gravity, Urine 1.015 (1.005-1.030); UTC Leukocyte Esterase,Urine Negative (Negative); UTC Nitrate,Urine Positive (Negative); Urobilinogen,Urine 0.2 EU/dl (0.2)
[2022-09-25 13:23] VITALS: BP 149/71; PULSE 84; RESP 18; TEMP 36.9; O2SAT 94
== END 2022-09-25 13:45 | disposition home or self-care (01) ==
LOC: ER 12:33 → UTC 12:33
PROVIDERS: Emergency Provider Nurse Practitioner; PCP Family Medicine
DX: N39.0 Urinary tract infection, site not specified (principal); B96.89 Other specified bacterial agents as the cause of diseases classified elsewhere; Z16.11 Resistance to penicillins
CPT/HCPCS: 81003; 87086; 87088; 87186; 96372; 99212; 99213; G0463; J0696

== ENCOUNTER 2022-10-10 10:13 | Emergency (ER) | payer MEDICARE, SELFPAY ==
[2022-10-10 10:35] VITALS: BP 108/65; PULSE 89; RESP 20; TEMP 36.9; O2SAT 95; BMI 34.0
--- NOTE | 2022-10-10 10:52 | EXP.UTC ---
Discharge Plan Disposition Patient Disposition: Home, Self-Care Condition: Good Prescriptions Prescriptions: New cefdinir 300 mg capsule 300 mg PO BID 10 Days Qty: 20 0RF No Action carvedilol 12.5 mg tablet 12.5 mg PO BID lactobacillus combination no.8 [Adult Probiotic] 3 billion cell capsule 3,000 mmu cells PO ONCE finasteride 5 mg tablet 5 mg PO DAILY Jardiance 25 mg tablet 25 mg PO DAILY gabapentin 400 mg capsule 400 mg PO TID ramipril 5 mg capsule 5 mg PO DAILY potassium chloride 20 mEq tablet,ER particles/crystals PO triamcinolone acetonide 0.1 % cream TP finasteride 5 mg tablet 5 mg PO DAILY nitroglycerin 0.4 mg tablet, sublingual 0.4 mg SL Q5M PRN Rx Instructions: do not exceed 3 doses per episode icosapent ethyl [Vascepa] 1 gram capsule 2 g PO BID Ozempic 0.25 mg or 0.5 mg(2 mg/1.5 mL) pen injector 0.25 mg SQ WEEKLY glipizide 10 mg tablet 10 mg PO BID rosuvastatin 10 mg tablet 10 mg PO DAILY Januvia 100 mg tablet 100 mg PO DAILY polyethylene glycol 3350 [Miralax] 17 gram/dose powder 17 g PO DAILY fluticasone propionate 50 mcg/actuation spray,suspension intranasal hydromorphone in 0.9 % NaCl 10 MG/50 ML prefilled pump reservoir 10.983 mg SQ DAILY bupivacaine (PF) 120 ML elastomeric pump,fixed rate 10.983 mg SQ DAILY amlodipine 2.5 MG tablet 2.5 mg PO DAILY icosapent ethyl 1 GM capsule 2 g PO BID torsemide 20 MG tablet 20 mg PO BID clopidogrel 75 MG tablet 75 mg PO DAILY aspirin 81 MG tablet,delayed release (DR/EC) 81 mg PO DAILY tamsulosin 0.4 MG capsule 0.4 mg PO DAILY cholecalciferol (vitamin D3) 400 UNIT capsule 400 unit PO DAILY cefdinir 300 mg capsule 300 mg PO BID Qty: 20 0RF Referrals Follow up/Referrals: Bk Morales MD [Primary Care Provider] - See instructions Cipriano Millard MD [Staff Physician] - See instructions (call office for appointment ) Activity Restrictions/Add. Instructions Additional Instructions/Restrictions: *Increase fluids. Water not Soda or Tea *Start antibiotic immediately and be sure to take as ordered for the FULL length of time although you should start to see improvement over the next 48 hours Make sure to call your Urologist and schedule appointment *Be SURE to follow up anytime for new or worsening symptoms with your family doctor. AND in 48 hours for urine culture results with your family doctor, if you do not have a doctor then you may call back to the [facility] for urine culture results and further treatment. We do recommend that you choose and establish care with a Primary Care Physician. ?AND follow up with them ?in 10-14 days to repeat UA to ensure infection is resolved and blood no longer present *Be sure to let your PCP know that we sent urine cultures from the [facility] so they can follow up to ensure that you area the on the correct antibiotic Call your doctor office and make appointment for 48 hours (2 days from today) ?to follow up and get the results of your urine culture and further treatment Follow up with your family Doctor for urine recheck as discussed Watch your Finger sticks and follow up with your family doctor or straight to ER if elevated Go straight to ER for any life threatening symptoms, fever, chills, or abdominal pain Clinical Impressions Clinical Impression: UTI (urinary tract infection) Qualifiers: Urinary tract infection type: site unspecified Hematuria presence: without hematuria Qualified Code(s): N39.0 - Urinary tract infection, site not specified Instructions Patient Instructions: Urinary Tract Infection, DI for Urinary Tract Infection (UTI), Cefdinir Discharge ED Provider: Roxanna Bowen [facility] [place] General Stated complaint: possible UTI Time Seen by Provider: 10/10/22 10:52 History of Present Illness Provider Com
[2022-10-10 11:15] VITALS: BP 108/65; PULSE 89; RESP 20; TEMP 36.9; O2SAT 95
[2022-10-10 11:23] LABS: Apearance,Urine Clear (Clear); Bilirubin,Urine Negative (Negative); Blood, Urine Negative (Negative); Color,Urine Orange (Yellow); Glucose,Urine (UA) >=1000 (Negative); Ketones,Urine Negative (Negative); Protein,Urine Negative (Negative); Specific Gravity, Urine 1.015 (1.005-1.030); UTC Leukocyte Esterase,Urine Negative (Negative); UTC Nitrate,Urine Positive (Negative); Urobilinogen,Urine 1 EU/dl (0.2)
== END 2022-10-10 11:22 | disposition home or self-care (01) ==
PROVIDERS: Emergency Provider Nurse Practitioner; PCP Family Medicine
DX: N39.0 Urinary tract infection, site not specified (principal)
CPT/HCPCS: 81003; 87086; 87088; 87186; 99212; 99213; G0463

== ENCOUNTER → 2022-10-24 14:25 | Outpatient (CLI) | payer MEDICARE, SELFPAY ==
--- NOTE | 2022-10-24 14:30 | XR_ITS ---
FINAL REPORT CLINICAL HISTORY: LT SHOULDER PAIN FINDINGS: LEFT SHOULDER 3 views of the left shoulder were obtained. There is no acute fracture or dislocation. There are mild degenerative changes of the acromioclavicular joint and moderate degenerative changes of the glenohumeral joint. There is no soft tissue abnormality. IMPRESSION: Degenerative changes as above with no acute bony abnormality. Reviewed, Interpreted and Dictated by Isauro Miller III, MD Transcribed by Meliza Martin Authenticated and [facility]
== END ==
PROVIDERS: PCP Family Medicine; Visit Provider Family Medicine
DX: M25.512 Pain in left shoulder (principal); M75.102 Unspecified rotator cuff tear or rupture of left shoulder, not specified as traumatic
CPT/HCPCS: 73030

== ENCOUNTER → 2022-11-21 09:00 | Outpatient (CLI) | payer MEDICARE, SELFPAY ==
--- NOTE | 2022-11-21 09:04 | CT_ITS ---
FINAL REPORT TECHNIQUE: Pre and post contrast images were obtained through the abdomen and pelvis by computed tomography. The study was performed with techniques to keep radiation dose as low as reasonably achievable, (ALARA). Individual dose reduction techniques using automated exposure control or adjustment of mA and/or kV according to the patient's size were employed. CLINICAL HISTORY: ABDOMINAL AORTIC ANEURYSM COMPARISON: CTA 02/07/2022 and 08/20/2021 FINDINGS: On the pre infusion images, there are dense vascular calcifications throughout the abdominal aorta. No kidney stone identified. Abdomen: The lung bases are clear. There is streak artifact from stimulator device over the left chest. There are multiple well-circumscribed low-attenuation structures in the liver measuring up to 10 mm, probable benign cysts. There is a focus measuring approximately 2.1 x 1.2 cm which appears to enhance in the right lobe of the liver seen on image 32 series 5, probably due to a perfusion anomaly. The gallbladder is surgically absent. There is a small sliding-type hiatal hernia. The spleen, pancreas, and adrenal glands appear unremarkable. There are exophytic cysts arising from both kidneys. There is an abdominal aortic aneurysm measuring 5.2 x 5.0 cm, previously measured 4.6 x 5.2 cm. There are dense vascular calcifications at the iliac bifurcation. There is no free fluid or adenopathy. There is streak artifact from a stimulator device arising from the lateral right hiwot abdomen. Pelvis: The appendix is not identified. The urinary bladder is unremarkable. There is no free fluid or adenopathy. IMPRESSION: Abdominal aortic aneurysm appears to have increased in transverse dimension from 4.6 cm to 5.0 cm. Benign appearing cysts in the liver and kidneys. Reviewed, Interpreted and Dictated by Marco Boo MD Transcribed by Tiffanie Cabral Authenticated and [facility]
[2022-11-21 09:46] LABS: Blood Urea Nitrogen 24 mg/dl (9-20); Estimated Glomerular Filt Rate 64 ml/min (>60); GFR (African American) 77 ML/MIN (>60)
== END ==
PROVIDERS: PCP Family Medicine; Visit Provider Thoracic Surgery (Cardiothoracic Vascular Surgery)
DX: I71.40 Abdominal aortic aneurysm, without rupture, unspecified (principal)
CPT/HCPCS: 36415; 74178; 82565; 84520; Q9967

== ENCOUNTER 2023-01-08 20:22 | Emergency (ER) | payer MEDICARE, SELFPAY ==
[2023-01-08 20:24] VITALS: BP 120/57; PULSE 90; RESP 16; TEMP 36.6; O2SAT 94; BMI 31.5
[2023-01-08 20:56] LABS: Microscopic, Urine URINE MICROSCOPIC (MICROSCOPIC)
[2023-01-08 21:03] LABS: Appearance,Urine CLEAR (Clear); Bilirubin,Urine Negative (Negative); Blood, Urine 3+ (Negative); Color,Urine YELLOW (Yellow); Glucose,Urine (UA) 3+ (Negative); Ketones,Urine Negative (Negative); Leukocyte Esterase,Urine TRACE (Negative); Nitrate,Urine POSITIVE (Negative); PH,Urine 7.5 (5.0-8.5); Protein,Urine 3+ (Negative)
[2023-01-08 21:07] LABS: Basophils % 0.5 % (0.1-2.0); Eosinophils # 0.1 K/mm3 (0.0-0.4); Eosinophils % 1.8 % (0.1-12.0); Hematocrit 41.5 % (42.0-52.0); Hemoglobin 13.5 g/dL (14.1-18.0); Lymphocytes # 2.9 K/mm3 (0.7-4.5); Lymphocytes % 38.1 % (10-50); Mean Corpuscular HGB Conc 32.6 g/dL (31.8-35.4); Mean Corpuscular Hemoglobin 31.4 pg (27.0-31.2); Mean Corpuscular Volume 96.5 fl (80-94); Mean Platelet Volume 9.7 fl (7.4-10.4); Monocytes # 0.6 K/mm3 (0.1-1.0); Monocytes % 7.1 % (1.7-9.3); Neutrophils % 52.5 % (37.0-80.0); Platelet Count 161 K/mm3 (142-424); Red Cell Distribution Width 13.6 % (11.5-17.5); White Blood Count 7.7 K/mm3 (4.8-10.8)
[2023-01-08 21:17] LABS: Chloride 96 mmol/L (98-107)
[2023-01-08 21:18] LABS: Potassium 4.5 mmoL/L (3.5-5.1); Sodium 136 mmol/L (136-145)
[2023-01-08 21:19] LABS: RBC,Urine TNTC #/hpf (0-3)
[2023-01-08 21:20] LABS: Bacteria,Urine 3+ /lpf
[2023-01-08 21:20] LABS: Alanine Aminotransferase 30 U/L (12-78); Aspartate Amino Transferase 36 U/L (17-59); Bilirubin,Total 0.4 mg/dl (0.2-1.3); Blood Urea Nitrogen 19 mg/dl (9-20); Creatinine Clearance Estimated 64 mL/min (50-200); Estimated Glomerular Filt Rate 58 ml/min (>60); GFR (African American) 70 ML/MIN (>60)
[2023-01-08 21:21] LABS: Albumin Level 3.8 g/dl (3.5-5.0); Albumin/Globulin Ratio 1.3 (1.1-1.8); Alkaline Phosphatase 66 U/L (38-126); Anion Gap 15.5 mEq/L (5-15); Calcium 8.6 mg/dl (8.4-10.2); Carbon Dioxide 29 mmol/L (22.0-30.0); Globulin 2.9 g/dL (1.3-3.2); Glucose 177 mg/dl (74-100); Total Protein,Serum 6.7 g/dl (6.3-8.2)
[2023-01-08 21:30] VITALS: BP 120/57; PULSE 74; O2SAT 95
--- NOTE | 2023-01-08 22:07 | CT_ITS ---
PROCEDURE INFORMATION: Exam: CT Abdomen And Pelvis With Contrast Exam date and time: 01/08/2023 10:26 PM Age: 87 years old Clinical indication: Abdominal pain; Patient HX: PT states concerned for UTI; Additional info: Abd pain TECHNIQUE: Imaging protocol: Computed tomography of the abdomen and pelvis with contrast. Radiation optimization: All CT scans at this facility use at least one of these dose optimization techniques: automated exposure control; mA and/or kV adjustment per patient size (includes targeted exams where dose is matched to clinical indication); or iterative reconstruction. Contrast material: ISOVUE; Contrast volume: 75 ml; Contrast route: IV; REPORTING DATA: Count of CT and Cardiac NM exams in prior 12 months: This patient has received 2 known CTs and 0 known cardiac nuclear medicine studies in the 12 months prior to the current study. COMPARISON: CT ABDOMEN PELVIS WO/W CON 11/21/2022 9:59 AM FINDINGS: Diaphragm: Small hiatal hernia. Liver: Few small cysts as well as right lobe hemangioma noted in the liver. Gallbladder and bile ducts: Gallbladder is surgically absent. Pancreas: Normal. No ductal dilation. Spleen: Normal. No splenomegaly. Adrenal glands: Normal. No mass. Kidneys and ureters: Stable bilateral renal cortical cysts. No suspicious renal mass or hydronephrosis. Stomach and bowel: Unremarkable. No obstruction. No mucosal thickening. Appendix: No evidence of appendicitis. Intraperitoneal space: Unremarkable. No free air. No significant fluid collection. Vasculature: Dense atherosclerotic calcification noted throughout the aorta. Stable 5.2 cm infrarenal abdominal aortic aneurysm. No evidence of aortic dissection. Lymph nodes: Unremarkable. No enlarged lymph nodes. Urinary bladder: There is diffuse thickening of the urinary bladder wall which appears new from the prior study. Small left-sided bladder diverticulum again noted. Reproductive: Unremarkable as visualized. Bones/joints: Significant degenerative changes noted in the lower spine and bony pelvis. No acute fracture. Soft tissues: Unremarkable. IMPRESSION: 1. Interval development of diffuse wall thickening of the urinary bladder compatible with cystitis. No evidence of hydronephrosis or pyelonephritis 2. Stable 5.2 cm abdominal aortic aneurysm. Other stable chronic findings as noted.
--- NOTE | 2023-01-08 22:20 | PC.NURSE ---
pt gone to scan at this time
--- NOTE | 2023-01-08 22:31 | PC.NURSE ---
pt back in room from scan
--- NOTE | 2023-01-08 23:13 | HMH.EDUROGM ---
Discharge Plan Disposition Patient Disposition: Home, Self-Care Prescriptions Prescriptions: New levofloxacin 500 mg tablet 500 mg PO DAILY Qty: 7 0RF No Action carvedilol 12.5 mg tablet 12.5 mg PO BID lactobacillus combination no.8 [Adult Probiotic] 3 billion cell capsule 3,000 mmu cells PO ONCE finasteride 5 mg tablet 5 mg PO DAILY Jardiance 25 mg tablet 25 mg PO DAILY gabapentin 400 mg capsule 400 mg PO TID ramipril 5 mg capsule 5 mg PO DAILY potassium chloride 20 mEq tablet,ER particles/crystals PO triamcinolone acetonide 0.1 % cream TP finasteride 5 mg tablet 5 mg PO DAILY nitroglycerin 0.4 mg tablet, sublingual 0.4 mg SL Q5M PRN Rx Instructions: do not exceed 3 doses per episode icosapent ethyl [Vascepa] 1 gram capsule 2 g PO BID Ozempic 0.25 mg or 0.5 mg(2 mg/1.5 mL) pen injector 0.25 mg SQ WEEKLY glipizide 10 mg tablet 10 mg PO BID rosuvastatin 10 mg tablet 10 mg PO DAILY Januvia 100 mg tablet 100 mg PO DAILY polyethylene glycol 3350 [Miralax] 17 gram/dose powder 17 g PO DAILY fluticasone propionate 50 mcg/actuation spray,suspension intranasal hydromorphone in 0.9 % NaCl 10 MG/50 ML prefilled pump reservoir 10.983 mg SQ DAILY bupivacaine (PF) 120 ML elastomeric pump,fixed rate 10.983 mg SQ DAILY amlodipine 2.5 MG tablet 2.5 mg PO DAILY icosapent ethyl 1 GM capsule 2 g PO BID torsemide 20 MG tablet 20 mg PO BID clopidogrel 75 MG tablet 75 mg PO DAILY aspirin 81 MG tablet,delayed release (DR/EC) 81 mg PO DAILY tamsulosin 0.4 MG capsule 0.4 mg PO DAILY cholecalciferol (vitamin D3) 400 UNIT capsule 400 unit PO DAILY cefdinir 300 mg capsule 300 mg PO BID Qty: 20 0RF cefdinir 300 mg capsule 300 mg PO BID 10 Days Qty: 20 0RF Referrals Follow up/Referrals: Bk Morales MD [Primary Care Provider] - See instructions Clinical Impressions Clinical Impression: Cystitis, AAA (abdominal aortic aneurysm) Instructions Patient Instructions: Aortic Aneurysm, DI for Urinary Tract Infection (UTI) Discharge ED Provider: [place] (ED)Nikhil Male Urogenital HPI General Chief complaint: Urogenital-Male Stated complaint: Possible UTI Time Seen by Provider: 01/08/23 22:15 Mode of Arrival: Ambulatory Source of Information: Patient, Relative and Medical Record Limitations: No Limitations Description of Symptoms (Recalled from ER Triage Doc. by RN): pt c/o painful and burning while urinating that started this evening . pt states he has frequent UTI. pt denies any abd pain n/v/d History of Present Illness HPI Narrative: dysuria tonight - hx of uti - no vomiting - hx of aaa MD Complaint: dysuria Onset (ago): hour(s) Duration: intermittent Severity: moderate Reports denies other symptoms Related Data Home Medications Medication Instructions Recorded Confirmed aspirin 81 mg tablet,delayed 81 mg PO DAILY CAD 09/16/17 10/23/22 release cholecalciferol (vitamin D3) 10 400 unit PO DAILY Supplement 09/16/17 10/23/22 mcg (400 unit) capsule clopidogrel 75 mg tablet 75 mg PO DAILY Blood thinner 09/16/17 10/23/22 tamsulosin 0.4 mg capsule 0.4 mg PO DAILY prostate 09/16/17 10/23/22 torsemide 20 mg tablet 20 mg PO BID Hypertension 09/16/17 10/23/22 carvedilol 12.5 mg tablet 12.5 mg PO BID High blood pressure 12/16/17 10/23/22 lactobacillus combination no.8 3 3,000 mmu cells PO ONCE Diet 12/16/17 10/23/22 billion cell capsule (Adult supplement Probiotic) finasteride 5 mg tablet 5 mg PO DAILY Urinary Retention 02/17/18 10/23/22 glipizide 10 mg tablet 10 mg PO BID Diabetes 08/25/18 10/23/22 polyethylene glycol 3350 17 17 g PO DAILY stools 08/25/18 10/23/22 gram/dose oral powder (Miralax) rosuvastatin 10 mg tablet 10 mg PO DAILY Cholesterol 08/25/18 10/23/22 sitagliptin phosphate 100 mg 100 mg P
[2023-01-08 23:36] VITALS: BP 130/61; PULSE 83; RESP 16; TEMP 36.6; O2SAT 99
== END 2023-01-09 | disposition home or self-care (01) ==
PROVIDERS: Emergency Provider Emergency Medicine; PCP Family Medicine
DX: N30.00 Acute cystitis without hematuria (principal); I71.40 Abdominal aortic aneurysm, without rupture, unspecified; I25.810 Atherosclerosis of coronary artery bypass graft(s) without angina pectoris; I10 Essential (primary) hypertension
CPT/HCPCS: 74177; 80053; 81001; 85025; 87086; 87088; 87186; 99284; 99285; Q9967

== ENCOUNTER → 2023-01-21 12:57 | Outpatient (POV) | payer MEDICARE, SELFPAY | PROVIDERS: Visit Provider Dermatology | DX: Z00.00 Encounter for general adult medical examination without abnormal findings (principal) ==

== ENCOUNTER 2023-02-10 14:00 | Outpatient (RCR) | payer MEDICARE, SELFPAY | END 2023-02-10 14:05 | disposition home or self-care (01) | LOC: OT 14:00 | PROVIDERS: PCP Family Medicine; Visit Provider Family Medicine | DX: M25.512 Pain in left shoulder (principal); M75.102 Unspecified rotator cuff tear or rupture of left shoulder, not specified as traumatic | CPT/HCPCS: 97010; 97014; 97110; 97140; 97164; 97165; 97530; G0283 ==

== ENCOUNTER → 2023-07-15 14:24 | Outpatient (POV) | payer MEDICARE, SELFPAY | PROVIDERS: PCP Family Medicine; Visit Provider Dermatology | DX: Z00.00 Encounter for general adult medical examination without abnormal findings (principal) ==

== ENCOUNTER → 2023-07-29 13:47 | Outpatient (POV) | payer MEDICARE, SELFPAY ==
--- OUTSIDE RECORDS SUMMARY | 2023-07-29 13:49 | XMS_ITS ---
Care Plan - [facility], [facility] Created on: July 29, 2023 PinkyMikeGianluca : [id number] Sex: Male Author Name Unknown Address [address] [address] Phone Organization [facility] , [facility] Address [address] [place] [address] Phone Care Team Providers Care Nutritional Services Cook Name Role Phone Kevin MARCELO, Randall Unavailable [phone] ROSE MARY ALEXANDRE MD Unavailable [phone]
--- OUTSIDE RECORDS SUMMARY | 2023-07-29 13:49 | XMS_ITS | Clinical Summary ---
Author Name Unknown Address [address] [place] [address] Phone Organization [facility] , [facility] Address [address] [place] [address] Phone Care Team Providers Care Pusher Operator Name Role Phone Kevin MARCELO, Randall Unavailable [phone] ROSE MARY ALEXANDRE MD Unavailable [phone] Reason for Visit and Chief Complaint The Chief Complaint is: right wrist pain Problems Includes: Problems addressed during this encounter and other active Problems All Visits Onset Date Resolved Date Provider Condition S tatus Joint Pain, Localized in the Right Wrist 08/21/2022 Randall Brown MD Active Plan of Treatment Fall Risk Assessment: This patient has been identified as a fall risk. Balance/gait along with postural blood pressure, vision and home fall hazards have been assessed. Medications have been reviewed, and recommendations made with regard to contributing factors for future falls. Plan of care: Consideration of vitamin D supplementation along with balance and strength training with consideration for formal physical therapy has been discussed with the patient. - Last Documented On 09/19/2022 2:12PM ; [facility] Gianluca is doing very well status post right ultrasound-guided carpal tunnel release. He has a well healed incision with no sign of infection and full hand and wrist function. His nocturnal hand pain has resolved and his numbness and tingling have remained the same. I reiterated that given the severity of his carpal tunnel, his numbness and tingling may not significantly improve. His left sided symptoms are not particularly bothersome, he has no night pain on the left side and only mild numbness and tingling. He will continue to monitor this and we will see him back on an as needed basis. - Last Documented On 09/19/2022 2:12PM ; [facility] Pending Tests Order Diagnosis Results Due Ordering P irieno Procedure/Tests Nerve Conduction Study Carpal tunnel syndrome, right upper limb 09/04/22 Randall Brown MD Instructions to patient Lose weight Last Documented On 3 1:15PM ; [facility] Assessments Includes: Assessments from this encounter No Assessments Recorded Instructions Includes: Instructions from this encounter Instructions to patient Lose weight Last Documented On 3 1:15PM ; [facility] Medical Equipment - Implanted Devices Includes: Current Devices No Medical Equipment Recorded Medications Includes: Medications discussed during this encounter and other current Medications Current Medications (continue as prescribed) Jardiance 25 MG Oral Tablet 08/17/2022 Provider: ROSE MARY ALEXANDRE MD Diagnosis: Vascepa 1 GM Oral Capsule 08/17/2022 Provider: BUTCH GRANADO MD Diagnosis: Amoxicillin 500 MG Oral Capsule 08/06/2022 Provider: Diagnosis: glipiZIDE 10 MG Oral Tablet 08/01/2022 Provider: ROSE MARY ALEXANDRE MD Diagnosis: Tamsulosin HCl 0.4 MG Oral Capsule 08/01/2022 Provid er: ROSE MARY ALEXANDRE MD Diagnosis: Potassium Chloride Anamika ER 2 0 MEQ Oral Tablet Extended Release 07/17/2022 Provider: ESTEBAN GRANADO MD Diagnosis: Ramipril 5 MG Oral Capsule 07/17/2022 Provider: Juice ALEXANDRE MD Diagnosis: Triamcinolone Acetonide 0.1% External Cream 07/17/2022 Provider: Diagnosis: Medications Administered Includes: Administered Medications from this encounter No Administered Medications Recorded Vital Signs Includes: Vital Signs from this encounter Vital Name 09/19/2022 01:32P Blood Pressure Sitting (mmHg) 127/66 Pulse Rate-Sitting (bpm) 76 Height (in) 70 Weight (lb) 231 Body Mass Index 33.1 Body Surface Area 2.2 Note: snb Last Documented On: 09/19/2022 1:32PM ; [facility] Results Includes: Results discussed during this encounter No Results Recorded For Specified Dates History of Present Illness Includes: History of Present Illness from this encounter ELFEGO Vance is an 86 year old male. - Allergy list reviewed - Problem list reviewed - Medication list reviewed - Previous history of new onset pain Injury is not work related or an automotive accident - Pain is occasional (25% of the time) - Pain is dull, aching - Patient pain level from 1-10: 8 - Yes, previous treatment. - History of Physical Therapy 86-year-old male returns for an initial postoperative follow up of a right ultrasound-guided carpal tunnel release performed on 09/03/2022. He reports that his nocturnal hand pain has resolved and his numbness and tingling have remained the same. He is pleased with his result given the severity of his carpal tunnel syndrome. Social History Description Last Updated Tobacco non-user 08/21/2022 Procedures and Surgical History Includes: Procedures from this encounter Procedures Code Diagnosis Performing Provider Service L ocation Service Date use of tobacco assessment performed 1000F Surgical History Last Updated History of back surgery 08/21/2022 Medical History Includes: Medical History addressed during this encounter Description Last Updated No recent immunization for flu Family History Includes: Family History addressed during this encounter Description Last Updated No significant family history 08/21/2022 Review of Systems Includes: Review of Systems from this encounter Systemic: Not feeling tired, no recent weight loss, and no recent weight gain. Head: No headache and no sinus pain. Eyes: No vision problems, no Cataracts, no Glasses/Contacts, and no Glaucoma. Otolaryngeal: No hearing loss and no tinnitus. Cardiovascular: No chest pain or discomfort, no palpitations, no Hypertension, and no High Cholesterol. Pulmonary: No daytime asthma symptoms and no chronic cough. No wheezing. Gastrointestinal: No heartburn and no abdominal pain. No Indigestion, no Acid Reflux, no Peptic Ulcer, no GI Stomach Bleed, and no Ulcers. Endocrine: No hot flashes, no muscle weakness, no Diabetes, no Hypothyroid, and no Hyperthyroid. Hematologic: No easy bleeding, no tendency for easy bruising, and no Anemia. Musculoskeletal: No Arthritis and no lower back pain. No soft tissue swelling and no localized joint pain. Neurological: No dizziness, no convulsions, and no numbness. Psychological: No anxiety, no emotional lability, no depression, and no insomnia. Not crying for no reason. Skin: No dry skin. No Ulcers, no Scars, and no rash. Allergic and Immunologic: No complaint of seasonal allergic reaction. Mental Status Includes: Mental Status from this encounter Description No anxiety Functional Status Includes: Functional Status from this encounter No Functional Status Recorded Physical Exam Includes: Physical Exam from this encounter Allergies Includes: Active Allergies No Known Allergies Encounters Encounter Provider Location Date Check-In Time Check- Out Time Diagnosis Post Op Randall Brown MD [facility] 3 1:09PM 2:12PM Insurance Includes: Active Insurance Policies Plan Name Member ID Group # Subscriber Relationship Effect cyndi Dates 1 - [employer] [id number] Gianluca Vance Self 08/18/2022 - Unknown Clinical Notes Includes: Clinical Notes from this encounter * Progress note Date Encounter Last Documented by 09/19/2022 Post Op Last documented on 09/19/2022; 2:12 PM, Randall Brown MD; [facility] Active Problems & Conditions - Joint Pain, Localized in the Right Wrist Chief Complaint The Chief Complaint is: Right wrist pain. Referred Here Referred by. History of Present Illness Gianluca Vance is an 86 year old male. - Allergy list reviewed - Problem list reviewed - Medication list reviewed - Previous history of new onset pain Injury is not work related or an automotive accident - Pain is occasional (25% of the time) - Pain is dull, aching - Patient pain level from 1-10: 8 - Yes, previous treatment. - History of Physical Therapy 86-year-old male returns for an initial postoperative follow up of a right ultrasound-guided carpal tunnel release performed on 09/03/2022. He reports that his nocturnal hand pain has resolved and his numbness and tingling have remained the same. He is pleased with his result given the severity of his carpal tunnel syndrome. Current Medication - Amoxicillin 500 MG Oral Capsule 10 days, 0 refills - glipiZIDE 10 MG Oral Tablet 90 days, 0 refills - Jardiance 25 MG Oral Tablet 90 days, 0 refills - Potassium Chloride Anamika ER 20 MEQ Oral Tablet Extended Release 90 days, 0 refills - Ramipril 5 MG Oral Capsule 90 days, 0 refills - Tamsulosin HCl 0.4 MG Oral Capsule 90 days, 0 refills - Triamcinolone Acetonide 0.1% External Cream 30 days, 0 refills - Vascepa 1 GM Oral Capsule 90 days, 0 refills Past Medical/Surgical History Reported: Immunization History: No recent immunization for flu and not for pneumococcal pneumonia. Procedural: - History of Gallbladder Surgical: - Heart surgery - Back surgery Social History Not a current smoker. Current diet: No recent change in diet. Caffeine use: Caffeine use. Tobacco use: Tobacco non-user. Alcohol: Not using alcohol. Drug Use: Not using drugs. Habits: Not exercising regularly. Allergies - No Known Allergies Family History No significant family history Review Of Systems Systemic: Not feeling tired, no recent weight loss, and no recent weight gain. Head: No headache and no sinus pain. Eyes: No vision problems, no Cataracts, no Glasses/Contacts, and no Glaucoma. Otolaryngeal: No hearing loss and no tinnitus. Cardiovascular: No chest pain or discomfort, no palpitations, no Hypertension, and no High Cholesterol. Pulmonary: No daytime asthma symptoms and no chronic cough. No wheezing. Gastrointestinal: No heartburn and no abdominal pain. No Indigestion, no Acid Reflux, no Peptic Ulcer, no GI Stomach Bleed, and no Ulcers. Endocrine: No hot flashes, no muscle weakness, no Diabetes, no Hypothyroid, and no Hyperthyroid. Hematologic: No easy bleeding, no tendency for easy bruising, and no Anemia. Musculoskeletal: No Arthritis and no lower back pain. No soft tissue swelling and no localized joint pain. Neurological: No dizziness, no convulsions, and no numbness. Psychological: No anxiety, no emotional lability, no depression, and no insomnia. Not crying for no reason. Skin: No dry skin. No Ulcers, no Scars, and no rash. Allergic and Immunologic: No complaint of seasonal allergic reaction. Physical Findings - Vitals taken 09/19/2022 01:32 pm snb BP-Sitting 127/66 mmHg Pulse Rate-Sitting 76 bpm Height 70 in Weight 231 lbs Body Mass Index 33.1 kg/m2 Body Surface Area 2.2 m2 Standard Measurements: - Patient was overweight. RIGHT WRIST/HAND: Able to make a full composite fist Able to fully flex and extend all fingers Hand is warm and well perfused Well healed incision with no sign of infection; No erythema induration or purulence. Median nerve sensation is improved from preoperative status. Sensation intact to light touch distally in all nerve distributions Mild postoperative pillar pain Counseling/Education - Lose weight Plan Fall Risk Assessment: This patient has been identified as a fall risk. Balance/gait along with postural blood pressure, vision and home fall hazards have been assessed. Medications have been reviewed, and recommendations made with regard to contributing factors for future falls. Plan of care: Consideration of vitamin D supplementation along with balance and strength training with consideration for formal physical therapy has been discussed with the patient. Gianluca is doing very well status post right ultrasound-guided carpal tunnel release. He has a well healed incision with no sign of infection and full hand and wrist function. His nocturnal hand pain has resolved and his numbness and tingling have remained the same. I reiterated that given the severity of his carpal tunnel, his numbness and tingling may not significantly improve. His left sided symptoms are not particularly bothersome, he has no night pain on the left side and only mild numbness and tingling. He will continue to monitor this and we will see him back on an as needed basis. Notes Transcribed by Lety Andersen, acting as a scribe for Dr. Brown. This dictation was done with voice recognition software and may contain errors and omissions. Practice Management Use of tobacco assessment performed and patient screened for future fall risk documentation of any fall with injury in past year. Care Team - ROSE MARY ALEXANDRE MD - REGULATORY AFFAIRS ASSOCIATE
--- OUTSIDE RECORDS SUMMARY | 2023-07-29 13:49 | XMS_ITS ---
Author Name Unknown Address [address] [place] [address] Phone Organization [facility] Address [address] [place] [address] Phone Care Team Providers Care Television Maintenance Worker Name Role Phone Kevin MARCELO, Randall Unavailable [phone] ROSE MARY ALEXANDRE MD Unavailable [phone] Problems Includes: Active, inactive, and resolved Problems All Visits Onset Date Resolved Date Provider Condition S tatus Joint Pain, Localized in the Right Wrist 08/21/2022 Randall Brown MD Active Plan of Treatment Pending Tests Order Diagnosis Results Due Ordering P rovider Procedure/Tests Nerve Conduction Study Carpal tunnel syndrome, right upper limb 09/04/22 Randall Brown MD Instructions to patient Lose weight Last Documented On 3 1:15PM ; [facility] Lose weight Last Documented On 3 1:06PM ; [facility] Lose weight Last Documented On 3 1:36PM ; [facility] Assessments Includes: Assessments for all patient encounters No Assessments Recorded Instructions Includes: Instructions for all patient encounters Instructions to patient Lose weight Last Documented On 3 1:15PM ; [facility] Lose weight Last Documented On 3 1:06PM ; [facility] Lose weight Last Documented On 3 1:36PM ; [facility] Medical Equipment - Implanted Devices Includes: Current and historical Devices No Medical Equipment Recorded Medications Includes: Current and historical Medications Current Medications (continue as prescribed) Jardiance [...] Provider: Diagnosis: Medications Administered Includes: Administered Medications in patient's chart No Administered Medications Recorded Vital Signs Includes: Vital Signs from 07/29/2022 through 07/29/2023 Vital Name 09/19/2022 01:32P 08/29/2022 01:11P 08/21 01:20P Blood Pressure Sitting (mmHg) 127/66 104/59 144/75 Pulse Rate-Sitting (bpm) 76 88 88 Height (in) 70 70 70 Weight (lb) 231 230 230 Body Mass Index 33.1 33 33 Body Surface Area 2.2 2.2 2.2 Note: snb RM dp Last Documented On: 09/19/2022 1:32PM ; [facility], [facility] 08/29/2022 1:12PM ; [facility], [facility] 08/21/2022 1:35PM ; [facility], [facility] Results Includes: Results from 07/29/2022 through 07/29/2023 No Results Recorded For Specified Dates History of Present Illness History of Present Illness not supported for this document type No History of Present Illness Recorded Social History Description Last Updated Tobacco non-user 08/21/2022 Procedures and Surgical History Includes: Procedures from 07/29/2022 through 07/29/2023 Procedures Code Diagnosis Performing Provider Service Location Service Date DECOMPRESSION MEDIAN NERVE AT CARPAL (RIGHT) 06483 Carpal tunnel syndrome, right upper limb Randall Brown MD [facility] 09/03/2022 Surgical History Last Updated History of back surgery 08/21/2022 Medical History Includes: Medical History in patient's chart Description Last Updated No recent immunization for flu Family History Includes: Family History in patient's chart Description Last Updated No significant family history 08/21/2022 Review of Systems Review of Systems not supported for this document type No Review of Systems Recorded Mental Status Description No anxiety Functional Status No Functional Status Recorded Physical Exam Physical Exam not supported for this document type No Physical Exam Recorded Immunizations Includes: Immunizations in patient's chart Vaccine Dose # Date Site Reaction(s) Status Source Influenza 1 08/21/2022 Complete (Refused - Patient objection) [facility] Allergies Includes: Active, inactive, and resolved Allergies No Known Allergies Encounters Includes: Encounters from 07/29/2022 through 07/29/2023 Encounter Provider Location Date Check-In Time Check-Out Time Diagnosis Post Op Randall Brown MD [facility] 09/19/19 1:09PM 2:12PM [facility] Randall Brown MD Surgery 09/03/19 2:29PM 08/29/2022 11:59PM Follow Up Randall Brown MD [facility] 08/29/19 1:00PM 1:35PM [facility] 08/29/19 12:21PM 08/21/2022 11:59PM Physician Specified Randall Brown MD [facility] 08/21/19 1:16PM 1:50PM Insurance Includes: Active Insurance Policies Plan Name Member ID Group # Subscriber Relationship Effect cyndi Dates 1 - [employer] [id number] Gianluca Vance Self 08/18/2022 - Unknown Clinical Notes Includes: Signed Clinical Notes starting from 08/01/2022 * Progress note Date Encounter Last Documented by 09/19/2022 Post Op Last documented on 09/19/2022; 2:12 PM, Randall Brown MD; [facility] Active Problems & Conditions - Joint Pain, [...] Team - ROSE MARY ALEXANDRE MD - FLAG SIGNALER * Progress note Date Encounter Last Documented by 08/29/2022 Follow Up Last documented on 08/29/2022; 1:41 PM, Randall Brown MD; [facility], [facility] Active Problems & Conditions - Joint Pain, Localized in the Right Wrist Chief Complaint The Chief Complaint is: Right wrist pain. History of Present Illness Gianluca Vance is [...] History of Physical Therapy 86-year-old male returns in follow up of right sided longstanding numbness, tingling, and pain in the median nerve distribution. He has no numbness or tingling in the small and ring fingers and is completely asymptomatic on the left side. He has been to multiple occupational therapy visits which were not beneficial to him. He was referred to us for a second opinion by Dr. Alexandre at [facility]. He had an EMG study and is prepared to review his results today. Current Medication - Amoxicillin 500 MG Oral Capsule 10 days, 0 refills - glipiZIDE 10 MG Oral Tablet 90 days, 0 refills - Jardiance 25 MG Oral Tablet 90 days, 0 refills - Potassium Chloride Anamkia ER 20 MEQ Oral Tablet Extended Release [...] allergic reaction. Physical Findings - Vitals taken 08/29/2022 01:11 pm RM BP-Sitting 104/59 mmHg Pulse Rate-Sitting 88 bpm Height 70 in Weight 230 lbs Body Mass Index 33 kg/m2 Body Surface Area 2.2 m2 Standard Measurements: - Patient was overweight. CTS6 1. The patient DOES HAVE numbness predominantly or exclusively in the median nerve territory. (3.5) 2. The patient DOES HAVE nocturnal numbness (4) Symptoms are predominantly the patient sleep; numbness wakes patient from sleep Physical examination 3. The patient DOES HAVE thenar atrophy and/or weakness (5) The bulk the thenar area is reduced or where manual motor testing shows strength of grade 4 less 4. The patient DOES HAVE a positive Phalen??s test (5) Flexion of the wrist reproduces her worsened symptoms of numbness in the median nerve territory 5. The patient DOES HAVE loss of 2 point discrimination (4.5) Failure to discriminate 2 points held 5 mm or less apart from one another, in the median innervated digits 6. The patient DOES HAVE a positive Tinel sign (4) Light tapping over the median nerve at the level of the carpal tunnel causing radiating paresthesias Total: 26/26 Greater than 12 equals 0.80 probability of carpal tunnel Greater than 18 has a 99% specificity and 96% PPV RIGHT WRIST/HAND: No deformity. No discoloration. No atrophy. No tenderness to palpation. No crepitation. Decreased sensation in the median nerve distribution. Active Range of motion: Flexion [90] degrees. Extension [70] degrees. Ulnar deviation [65] degrees. Radial deviation [25] degrees. Pronation [90] degrees. Supination [90] degrees. Strength: [5/5] wrist flexion, [5/5] extension, [5/5] supination, [5/5] pronation. Positive carpal compression test. Positive Tinel's sign. [+] Thenar Atrophy. [+] Thenar Weakness. Tenderness over the CMC, positive CMC grind. Tests [facility]UE EMG 08/29/2022: Severe carpal tunnel on the right and moderate carpal tunnel on the left Counseling/Education - Lose weight Plan Fall Risk [...] physical therapy has been discussed with the patientAruna Hough has a physical exam that is suggestive of severe right sided carpal tunnel syndrome. On exam he has significant thenar wasting and loss of 2 point discrimination. He has both daytime and nocturnal median nerve symptoms to include hand pain, numbness, and tingling. He has failed therapy and conservative measures. We reviewed his EMG study which confirmed severe carpal tunnel on the right side and moderate carpal tunnel on the left. We again discussed the risks and benefits of non-operative (bracing, injection) vs. operative intervention (release). He would like to proceed with a right ultrasound guided carpal tunnel release and is scheduled on 09/03/2022. Surgical vs. non-surgical treatment options (cortisone injection, bracing) were discussed with the patient. The risks and benefits of each were discussed in detail. With regard to surgery the major risks, to include but not limited to bleeding, infection, nerve and blood vessel injury, tendon injury, residual pain, numbness, stiffness, blood clots and risks related to anesthesia including were discussed. We also discussed that in cases of carpal tunnel syndrome where profound numbness is the primary symptom, normal sensation may not return immediately and in many cases, minimal sensory improvement is appreciated. We discussed the need to observe nerve recovery patiently in the postoperative period. After this discussion, the patient elected to proceed with endoscopic carpal tunnel release, with the understanding that in some rare cases there is the need to convert to an open carpal tunnel release. The patient will be scheduled for surgery at their earliest convenience. Notes Transcribed by Lety Andersen, acting as a scribe for Dr. Brown. Practice Management Use of tobacco assessment performed and patient screened for future fall risk documentation of any fall with injury in past year. * Progress note Date Encounter Last Documented by 08/21/2022 Physician Specified Last documejulita saunders on 08/21/2022; 1:50 PM, Randall Brown MD; [facility], [facility] Active Problems & Conditions - Joint Pain, Localized in the Right Wrist Chief Complaint The Chief Complaint is: Right wrist pain. History of Present Illness Gianluca Vance is [...] - History of Physical Therapy 86-year-old male presents for an initial evaluation of right sided longstanding numbness, tingling, and pain in the median nerve distribution. He has no numbness or tingling in the small and ring fingers and is completely asymptomatic on the left side. He has been to multiple occupational therapy visits which were not beneficial to him. He was referred to us for a second opinion by Dr. Alexandre at [facility]. Current Medication - Amoxicillin 500 MG Oral [...] allergic reaction. Physical Findings - Vitals taken 08/21/2022 01:20 pm dp BP-Sitting 144/75 mmHg Pulse Rate-Sitting 88 bpm Height 70 in Weight 230 lbs Body Mass Index 33 kg/m2 Body Surface Area 2.2 m2 Standard Measurements: - Patient was overweight. CTS6 1. The patient DOES HAVE numbness predominantly or exclusively in the median nerve territory. (3.5) 2. The patient DOES HAVE nocturnal numbness (4) Symptoms are predominantly the patient sleep; numbness wakes patient from sleep Physical examination 3. The patient DOES HAVE thenar atrophy and/or weakness (5) The bulk the thenar area is reduced or where manual motor testing shows strength of grade 4 less 4. The patient DOES HAVE a positive Phalen??s test (5) Flexion of the wrist reproduces her worsened symptoms of numbness in the median nerve territory 5. The patient DOES HAVE loss of 2 point discrimination (4.5) Failure to discriminate 2 points held 5 mm or less apart from one another, in the median innervated digits 6. The patient DOES HAVE a positive Tinel sign (4) Light tapping over the median nerve at the level of the carpal tunnel causing radiating paresthesias Total: 26/26 Greater than 12 equals 0.80 probability of carpal tunnel Greater than 18 has a 99% specificity and 96% PPV RIGHT WRIST/HAND: No deformity. No discoloration. No atrophy. No tenderness to palpation. No crepitation. Decreased sensation in the median nerve distribution. Active Range of motion: Flexion [90] degrees. Extension [70] degrees. Ulnar deviation [65] degrees. Radial deviation [25] degrees. Pronation [90] degrees. Supination [90] degrees. Strength: [5/5] wrist flexion, [5/5] extension, [5/5] supination, [5/5] pronation. Positive carpal compression test. Positive Tinel's sign. [+] Thenar Atrophy. [+] Thenar Weakness. Tenderness over the CMC, positive CMC grind. Tests Ultrasound examination of the upper extremity was performed in clinic today. Carpal Tunnel: Right- cross sectional area of the median nerve at the level of the pisiform was 14 mm^2. Vaccinations - Td Dose #1 Status: Refused Patient Objection Date: 08/21/2022 - Influenza Dose #1 Status: Refused Patient Objection Date: 08/21/2022 - PCV (Pneumovax 23) Dose #1 Status: Refused Patient Objection Date: 08/21/2022 Counseling/Education - Lose weight Plan Fall Risk [...] has been discussed with the patient. Gianluca has a physical exam that is suggestive of severe right sided carpal tunnel syndrome. On exam he has significant thenar wasting and loss of 2 point discrimination. He has both daytime and nocturnal median nerve symptoms to include hand pain, numbness, and tingling. He has failed therapy and conservative measures. We used ultrasound today to measure a cross section of his median nerve and discussed the risks and benefits of non-operative (bracing, injection) vs. operative intervention (release). He would like to proceed with a right ultrasound guided carpal tunnel release. Surgical vs. non-surgical treatment options (cortisone injection, bracing) were discussed with the patient. The risks and benefits of each were discussed in detail. With regard to surgery the major risks, to include but not limited to bleeding, infection, nerve and blood vessel injury, tendon injury, residual pain, numbness, stiffness, blood clots and risks related to anesthesia including were discussed. We also discussed that in cases of carpal tunnel syndrome where profound numbness is the primary symptom, normal sensation may not return immediately and in many cases, minimal sensory improvement is appreciated. We discussed the need to observe nerve recovery patiently in the postoperative period. After this discussion, the patient elected to proceed with endoscopic carpal tunnel release, with the understanding that in some rare cases there is the need to convert to an open carpal tunnel release. The patient will be scheduled for surgery at their earliest convenience. Notes Transcribed by Lety Andersen, acting as a scribe for Dr. Brown. Practice Management Use of tobacco assessment performed and patient screened for future fall risk documentation of any fall with injury in past year.
--- OUTSIDE RECORDS SUMMARY | 2023-07-29 13:50 | XMS_ITS | Clinical Summary ---
Author Name Unknown Address [address] [place] [address] Phone Organization [facility] , [facility] Address [address] [place] [place] [address] Phone Care Team Providers Care Managing Principal Name Role Phone Randall Brown MD Unavailable [phone] ROSE MARY ALEXANDRE MD Unavailable [phone] Reason for Visit and Chief Complaint [facility] Problems Includes: Problems addressed during this encounter and other active Problems All Visits Onset Date Resolved Date Provider Condition S tatus Joint Pain, Localized in the Right Wrist 08/21/2022 Randall Brown MD Active Plan of Treatment Pending Tests Order Diagnosis Results Due Ordering P roviana Procedure/Tests Nerve Conduction Study Carpal tunnel syndrome, right upper limb 09/04/22 Randall Brown MD Assessments Includes: Assessments from this encounter No Assessments Recorded Medical Equipment - Implanted Devices Includes: Current [...] from this encounter No Administered Medications Recorded Results Includes: Results discussed during this encounter No Results Recorded For Specified Dates History of Present Illness Includes: History of Present Illness from this encounter No History of Present Illness Recorded Social History No Social History Recorded - Smoking Status Unknown Procedures and Surgical History Includes: Procedures from this encounter Procedures Code Diagnosis Performing Provider Service Location Service Date DECOMPRESSION MEDIAN NERVE AT CARPAL (RIGHT) 99500 Carpal tunnel syndrome, right upper limb Randall Brown MD [facility] 09/03/2022 Medical History Includes: Medical History addressed during this encounter No Medical History Recorded Family History Includes: Family History addressed during this encounter No Family History Recorded Review of Systems Includes: Review of Systems from this encounter No Review of Systems Recorded Mental Status Includes: Mental Status from this encounter No Mental Status Recorded Functional Status Includes: Functional Status from this encounter No Functional Status Recorded Physical Exam Includes: Physical Exam from this encounter No Physical Exam Recorded Allergies Includes: Active Allergies No Known Allergies Encounters Encounter Provider Location Date Check-In Time Check-Out Time Diagnosis [facility] Randall Brown MD Surgery 09/03/2022 2:29PM 11:59PM Insurance Includes: Active Insurance Policies Plan Name Member ID Group # Subscriber Relationship Effect cydni Dates 1 - [employer] [id number] Gianluca Neat Self 08/18/2022 - Unknown Clinical Notes Includes: Clinical Notes from this encounter No Clinical Notes Recorded
--- OUTSIDE RECORDS SUMMARY | 2023-07-29 13:50 | XMS_ITS | Clinical Summary ---
Author Name Unknown Address [address] [place] [address] Phone Organization [facility] , [facility] Address [address] [place] [address] Phone Care Team Providers Care Payloader Machine Operator Name Role Phone Kevin MARCELO, Randall Unavailable [phone] ROSE MARY ALEXANDRE MD Unavailable [phone] Reason for Visit and Chief Complaint [facility] Problems Includes: Problems addressed during this encounter and other active Problems All Visits Onset Date Resolved Date Provider Condition S tatus Joint Pain, Localized in the Right Wrist 08/21/2022 Randall Brown MD Active Plan of Treatment No Plan of Treatment Recorded Assessments Includes: Assessments from this encounter No [...] Diagnosis Performing Provider Service Location Service Date Nerve Conduction Studies; 7-8 studies 37008 Pain in right hand, Paresthesia of skin Randall Brown MD [facility] 08/29/2022 Medical History Includes: Medical History addressed during [...] Location Date Check-In Time Check-Out Time Diagnosis [facility] 08/29/2022 12:21PM 11:59PM Insurance Includes: Active Insurance Policies Plan Name Member ID Group # Subscriber Relationship Effect cyndi Dates 1 - [employer] [id number] Gianluca Neat Self 08/18/2022 - Unknown Clinical Notes Includes: Clinical Notes from this encounter No Clinical Notes Recorded
--- OUTSIDE RECORDS SUMMARY | 2023-07-29 13:50 | XMS_ITS | Clinical Summary ---
Author Name Unknown Address [address] [place] [address] Phone Organization [facility] , [facility] Address [address] [place] [address] Phone Care Team Providers Care Car Sales Consultant Name Role Phone Kevin MARCELO, Randall Unavailable [phone] ROSE MARY ALEXANDRE MD Unavailable [phone] Reason for Visit and Chief Complaint The Chief Complaint is: right wrist pain Problems Includes: Problems addressed during this encounter and other active Problems Current Visit Onset Date Resolved Date Provider Lori cancino Status Joint Pain, Localized in the Right Wrist [...] with the patient. - Last Documented On 08/21/2022 1:50PM ; [facility] Gianluca has a physical exam that is [...] scheduled for surgery at their earliest convenience. - Last Documented On 08/21/2022 1:50PM ; [facility] Pending Tests Order Diagnosis Results Due Ordering P irineo Procedure/Tests Nerve Conduction Study Carpal tunnel syndrome, right upper limb 09/04/22 Randall Brown MD Instructions to patient Lose weight Last Documented On 3 1:36PM ; [facility] Assessments Includes: Assessments from this encounter No Assessments Recorded Instructions Includes: Instructions from this encounter Instructions to patient Lose weight Last Documented On 3 1:36PM ; [facility] Medical Equipment - Implanted Devices Includes: [...] Vital Signs from this encounter Vital Name 08/21/2022 01:20P Blood Pressure Sitting (mmHg) 144/75 Pulse Rate-Sitting (bpm) 88 Height (in) 70 Weight (lb) 230 Body Mass Index 33 Body Surface Area 2.2 Note: dp Last Documented On: 08/21/2022 1:35PM ; [facility], [facility] Results Includes: Results discussed during this [...] a second opinion by Dr. Alexandre at [facility]. Social History Description Last Updated Tobacco non-user 08/21/2022 Procedures and Surgical History Includes: Procedures from this encounter Procedures Code Diagnosis Performing Provider Service Location Service Date Ultrasound,extrem ity,nonvascular,r eal-time,with image limit (RIGHT) 76609 Carpal tunnel syndrome, right upper limb Randall Brown MD [facility] 08/21/2022 Surgical History Last Updated History of back [...] Exam Includes: Physical Exam from this encounter Immunizations Includes: Immunizations addressed during this encounter Vaccine Dose # Date Site Reaction(s) Status Source Influenza 1 08/21/2022 Complete (Refused - Patient objection) [facility] Allergies Includes: Active Allergies No Known Allergies Encounters Encounter Provider Location Date Check-In Time Check-Out Time Diagnosis Physician Specified Randall Brown MD [facility] 08/21/19 23 1:16PM 1:50PM Insurance Includes: Active Insurance Policies Plan Name Member ID Group # Subscriber Relationship Effect cyndi Dates 1 - [employer] [id number] Gianluca Vance Self 08/18/2022 - Unknown Clinical Notes Includes: Clinical Notes from this encounter * Progress note Date Encounter Last Documented by 08/21/2022 Physician Specified Chauncey saunders on 08/21/2022; 1:50 PM, Randall Brown MD; [facility] Active Problems & Conditions - Joint [...] a second opinion by Dr. Alexandre at [facility]. Current Medication - Amoxicillin 500 [...]
--- OUTSIDE RECORDS SUMMARY | 2023-07-29 13:50 | XMS_ITS | Clinical Summary ---
Author Name Unknown Address [address] [place] [address] Phone Organization [facility] , [facility] Address [address] [place] [address] Phone Care Team Providers Care Civil Engineering Professor Name Role Phone Kevin MARCELO, Randall Unavailable [phone] ROSE MARY ALEXANDRE MD Unavailable [phone] Reason for Visit and [...] with the patient. - Last Documented On 08/29/2022 1:41PM ; [facility] Gianluca has a physical exam that [...] their earliest convenience. - Last Documented On 08/29/2022 1:41PM ; [facility] Pending Tests Order Diagnosis Results Due Ordering Roe cabello Procedure/Tests Nerve Conduction Study Carpal tunnel syndrome, right upper limb 09/04/22 Randall Brown MD Instructions to patient Lose weight Last Documented On 3 1:06PM ; [facility] Assessments Includes: Assessments from this encounter No Assessments Recorded Instructions Includes: Instructions from this encounter Instructions to patient Lose weight Last Documented On 3 1:06PM ; [facility] Medical Equipment - Implanted Devices [...] Oral Tablet Extended Release 07/17/2022 Provider: ESTEBAN GARNADO MD Diagnosis: Ramipril 5 MG Oral Capsule 07/17/2022 Provider: Juice ALEXANDRE MD Diagnosis: Triamcinolone Acetonide 0.1% External Cream 07/17/2022 Provider: Diagnosis: Medications Administered Includes: Administered Medications from this encounter No Administered Medications Recorded Vital Signs Includes: Vital Signs from this encounter Vital Name 08/29/2022 01:11P Blood Pressure Sitting (mmHg) 104/59 Pulse Rate-Sitting (bpm) 88 Height (in) 70 Weight (lb) 230 Body Mass Index 33 Body Surface Area 2.2 Note: RM Last Documented On: 08/29/2022 1:12PM ; [facility], [facility] Results Includes: Results discussed during this [...] a second opinion by Dr. Alexandre at [facility]. He had an EMG study and is prepared to review his results today. Social History Description Last Updated Tobacco non-user [...] Date Check-In Time Check- Out Time Diagnosis Follow Up Randall Brown MD [facility] 3 1:00PM 1:35PM Insurance Includes: Active Insurance Policies Plan Name Member ID Group # Subscriber Relationship Effect cyndi Dates 1 - [employer] [id number] Gianluca Vance Self 08/18/2022 - Unknown Clinical Notes Includes: Clinical Notes from this encounter * Progress note Date Encounter Last Documented by 08/29/2022 Follow Up Last documented on 08/29/2022; 1:41 PM, Randall Brown MD; [facility], [facility] Active Problems & Conditions - [...] a second opinion by Dr. Alexandre at [facility]. He had an EMG study and is [...]
== END ==
PROVIDERS: PCP Family Medicine; Visit Provider Dermatology
DX: Z00.00 Encounter for general adult medical examination without abnormal findings (principal)

== ENCOUNTER 2023-10-16 17:10 | Emergency (ER) | payer MEDICARE, SELFPAY ==
[2023-10-16 17:11] VITALS: BP 151/71; PULSE 88; RESP 18; TEMP 36.6; O2SAT 94; BMI 30.1
--- NOTE | 2023-10-16 17:38 | CT_ITS ---
PROCEDURE INFORMATION: Exam: CT Head Without Contrast Exam date and time: 10/16/2023 6:53 PM Age: 88 years old Clinical indication: Injury or trauma; Fall; Abrasion and bleeding/hemorrhage and blunt trauma (contusions or hematomas) and laceration; Consciousness not specified; Without residual foreign body; Forehead; Additional info: Fall with head injury > 65 TECHNIQUE: Imaging protocol: Computed tomography of the head without contrast. Radiation optimization: All CT scans at this facility use at least one of these dose optimization techniques: automated exposure control; mA and/or kV adjustment per patient size (includes targeted exams where dose is matched to clinical indication); or iterative reconstruction. COMPARISON: No relevant prior studies available. FINDINGS: Brain: The brain parenchyma appears unremarkable, with no signs of acute intracranial hemorrhage or significant mass effect. There is hypodensity in the subcortical and periventricular white matter which is technically nonspecific but most often related to chronic microvascular disease. Cerebral ventricles: Mild ventricular enlargement consistent with age-related cerebral atrophy is noted. Paranasal sinuses: Paranasal sinuses show age-appropriate mucosal thickening. Mastoid air cells: Visualized mastoid air cells are well aerated. Nasal cavity: There is rightward deviation of the bony nasal septum. Bones/joints: There are no skull fractures or bony lesions. Soft tissues: Moderate soft tissue swelling is noted over the left frontal calvarium. IMPRESSION: 1. Presumably age-related and chronic changes without acute intracranial abnormality. 2. Scalp hematoma over the left frontal calvarium without underlying calvarial injury identified.
--- NOTE | 2023-10-16 17:38 | CT_ITS ---
PROCEDURE INFORMATION: Exam: CT Cervical Spine Without Contrast Exam date and time: 10/16/2023 6:57 PM Age: 88 years old Clinical indication: Injury or trauma; Fall; Bleeding/hemorrhage and blunt trauma; Prior surgery; Surgery date: 6+ months; Surgery type: Cervical surgery; Additional info: Fall with head injury > 65 TECHNIQUE: Imaging protocol: Computed tomography of the cervical spine without contrast. Radiation optimization: All CT scans at this facility use at least one of these dose optimization techniques: automated exposure control; mA and/or kV adjustment per patient size (includes targeted exams where dose is matched to clinical indication); or iterative reconstruction. COMPARISON: 1. CT HEAD/BRAIN WO CON 10/16/2023 6:53 PM 2. US CA carotid duplex BI 01/06/2019 1:34 PM FINDINGS: Bones/joints: Status post anterior fusion at C5-C6. The cervical spine shows relatively preserved alignment of the vertebral bodies with no evidence of acute fractures or dislocations. However, age-related degenerative changes are observed, including mild disc space narrowing and osteophyte formation at multiple levels. These findings are consistent with age related degenerative disease. The patient is status post median sternotomy. Dental: There is dental amalgam which causes streak artifact and mildly limits evaluation of the oral cavity. Lungs: Lung apices are normal. Vasculature: There are atherosclerotic calcifications of the carotid bulbs bilaterally. Soft tissues: Unremarkable. IMPRESSION: Multilevel degenerative change without acute injury identified.
--- NOTE | 2023-10-16 17:40 | ED_ITS ---
Discharge Plan Disposition Patient Disposition: Home, Self-Care Condition: Good Prescriptions Prescriptions: No Action carvedilol 12.5 mg tablet 12.5 mg PO BID lactobacillus combination no.8 [Adult Probiotic] 3 billion cell capsule 3,000 mmu cells PO ONCE finasteride 5 mg tablet 5 mg PO DAILY gabapentin 400 mg capsule 400 mg PO TID ramipril 5 mg capsule 5 mg PO DAILY potassium chloride 20 mEq tablet,ER particles/crystals PO triamcinolone acetonide 0.1 % cream TP finasteride 5 mg tablet 5 mg PO DAILY nitroglycerin 0.4 mg tablet, sublingual 0.4 mg SL Q5M PRN Rx Instructions: do not exceed 3 doses per episode icosapent ethyl [Vascepa] 1 gram capsule 2 g PO BID Ozempic 0.25 mg or 0.5 mg(2 mg/1.5 mL) pen injector 0.25 mg SQ WEEKLY glipizide 10 mg tablet 10 mg PO BID rosuvastatin 10 mg tablet 10 mg PO DAILY Januvia 100 mg tablet 100 mg PO DAILY polyethylene glycol 3350 [Miralax] 17 gram/dose powder 17 g PO DAILY fluticasone propionate 50 mcg/actuation spray,suspension intranasal hydromorphone in 0.9 % NaCl 10 MG/50 ML prefilled pump reservoir 10.983 mg SQ DAILY bupivacaine (PF) 120 ML elastomeric pump,fixed rate 10.983 mg SQ DAILY amlodipine 2.5 MG tablet 2.5 mg PO DAILY icosapent ethyl 1 GM capsule 2 g PO BID torsemide 20 MG tablet 20 mg PO BID clopidogrel 75 MG tablet 75 mg PO DAILY aspirin 81 MG tablet,delayed release (DR/EC) 81 mg PO DAILY tamsulosin 0.4 MG capsule 0.4 mg PO DAILY cholecalciferol (vitamin D3) 400 UNIT capsule 400 unit PO DAILY cefdinir 300 mg capsule 300 mg PO BID Qty: 20 0RF cefdinir 300 mg capsule 300 mg PO BID 10 Days Qty: 20 0RF Referrals Follow up/Referrals: Bk Morales MD [Primary Care Provider] - See instructions Activity Restrictions/Add. Instructions Additional Instructions/Restrictions: You were evaluated in the emergency department today. Please keep your wounds clean and dry. Do not submerge under any water. Apply antibiotic ointment twice a day. Follow-up with your primary care provider for wound recheck. Continue following up with your primary care provider and your derrick man for your chronic sleep disturbance. Return to the emergency department for new or worsening symptoms. Clinical Impressions Clinical Impression: Fall, Hematoma of scalp, Skin tear of left upper extremity, Skin tear Instructions Patient Instructions: DI for Hematoma (Bruise), DI for Abrasion Discharge ED Provider: Andree Baptiste General Adult HPI General Chief complaint: Fall Stated complaint: AO/@1600 fall hit head, LT arm lac Time Seen by Provider: 10/16/23 17:24 Mode of Arrival: Wheelchair Source of Information: Patient Limitations: No Limitations Description of Symptoms (Recalled from ER Triage Doc. by RN): Patient states he was sitting at the table when he fell asleep and fell forward hitting his head and left arm. History of Present Illness HPI narrative: This patient is an 88-year-old male with a history of hypertension, hyperlipid emia, AMANDA on CPAP, obesity, GERD, and AAA presenting to the emergency department for evaluation with concern for head injury. Patient reports that for quite some time now, he has had issues sleeping at night and thus falls asleep frequently during the day. He is being worked up by his primary care provider as well as his derrick man at [facility] for this, and he states that he is awaiting an outpatient sleep study. He states that today, he feels sleep at the kitchen table when he fell forward, hitting his head and left arm. He suffered lacerations to both. He denies any use of anticoagulation. He states that he is otherwise feeling at his baseline prior to the fall, and he feels at his baseline now aside from some soreness to his head. No concerns noted at this time otherwise. No chest pain, shortness of breath, neurologic symptoms, or other issues. Related Data Home Medications Medication Instructions Recorded Confirmed aspirin 81 mg tablet,delayed 81 mg PO DAILY CAD 09/16/17 07/22/23 release cholecalciferol (vitamin D3) 10 400 unit PO DAILY Supplement 09/16/17 07/22/23 mcg (400 unit) capsule clopidogrel 75 mg tablet 75 mg PO DAILY Blood thinner 09/16/17 07/22/23 tamsulosin 0.4 mg capsule 0.4 mg PO DAILY prostate 09/16/17 07/22/23 torsemide 20 mg tablet 20 mg PO BID Hypertension 09/16/17 07/22/23 carvedilol 12.5 mg tablet 12.5 mg PO BID High blood pressure 12/16/17 07/22/23 lactobacillus combination no.8 3 3,000 mmu cells PO ONCE Diet 12/16/17 07/22/23 billion cell capsule (Adult supplement Probiotic) finasteride 5 mg tablet 5 mg PO DAILY Urinary Retention 02/17/18 07/22/23 glipizide 10 mg tablet 10 mg PO BID Diabetes 08/25/18 07/22/23 polyethylene glycol 3350 17 17 g PO DAILY stools 08/25/18 07/22/23 gram/dose oral powder (Miralax) rosuvastatin 10 mg tablet 10 mg PO DAILY Cholesterol 08/25/18 07/22/23 sitagliptin phosphate 100 mg 100 mg PO DAILY Diabetes 08/25/18 07/22/23 tablet (Januvia) bupivacaine (PF) 10.983 mg SQ DAILY pain pump 08/16/19 07/22/23 hydromorphone 10 mg/50 mL (0.2 10.983 mg SQ DAILY pain pump 08/16/19 07/22/23 mg/mL) in 0.9 % NaCl IV pump reservoir amlodipine 2.5 mg tablet 2.5 mg PO DAILY BP 05/29/21 07/22/23 icosapent ethyl 1 gram capsule 2 g PO BID BP 05/29/21 07/22/23 finasteride 5 mg tablet 5 mg PO DAILY 01/22/22 07/22/23 gabapentin 400 mg capsule 400 mg PO TID 01/22/22 07/22/23 icosapent ethyl 1 gram capsule 2 g PO BID 01/22/22 07/22/23 (Vascepa) nitroglycerin 0.4 mg sublingual 0.4 mg sublingual Q5M PRN 01/22/22 07/22/23 tablet potassium chloride 20 mEq meq PO 01/22/22 07/22/23 tablet,extended release(part/cryst) ramipril 5 mg capsule 5 mg PO DAILY 01/22/22 07/22/23 triamcinolone acetonide 0.1 % applic topical 01/22/22 07/22/23 topical cream fluticasone propionate 50 intranasal 04/24/22 07/22/23 mcg/actuation nasal spray,suspension semaglutide 0.25 mg or 0.5 mg (2 0.25 mg SQ WEEKLY 07/24/22 07/22/23 mg/1.5 mL) subcutaneous pen injector (Ozempic) Previous Rx's Medication Instructions Recorded cefdinir 300 mg capsule 300 mg PO BID #20 caps 09/25/22 cefdinir 300 mg capsule 300 mg PO BID 10 days #20 caps 10/10/22 Allergies Allergy/AdvReac Type Severity Reaction Status Date / Time empagliflozin AdvReac Intermediate Verified 07/22/23 13:46 [From Jardiance] [facility] Disclaimer: The information contained in this section may have been updated after the pat ient was seen, as this information can be updated by other users. Medical History Aneurysm Arthritis Atherosclerotic heart disease CAD (coronary artery disease) of artery bypass graft Cancer Hyperlipidemia Hypertension Myocardial infarction T2DM (type 2 diabetes mellitus) Social History Smoking Status: Never smoker second hand exposure: No alcohol intake: never substance use type: denies use current occupational status: retired Travel in the last 8 weeks: None household members: none housing: house current occupation: Director Special Education current occupational exposures/hazards: No caffeine: Yes ROS Obtained: Yes All systems reviewed & no additional complaints except as documented Physical Exam General General appearance: alert and in no apparent distress Head Head exam: other (Large hematoma to the left forehead with a large overlying skin tear/laceration that is irregular) Eye Eye exam: Present normal appearance, PERRL and EOMI ENT ENT exam: Present normal exam, normal oropharynx, mucous membranes moist and normal external ear exam Neck Neck exam: Present normal inspection, full ROM and trachea midline; Absent tenderness Chest Chest inspection: Present normal inspection and symmetric chest wall rise; Absent tenderness Respiratory Respiratory exam: Present normal lung sounds bilaterally; Absent respiratory d istress, wheezes, stridor or accessory muscle use Cardiovascular Cardiovascular exam: Present regular rate and normal rhythm Abdominal Exam Abdominal exam: Present soft; Absent distention, tenderness or guarding Extremities Exam Extremities exam: Present full ROM, normal capillary refill and other (Complex laceration/abrasion to the left forearm. Neurovascularly intact distally. No significant bony tenderness. Range of motion intact.); Absent tenderness or edema Back Exam Back exam: Present normal inspection and full ROM; Absent tenderness Neurological Exam Neurological exam: Present alert, oriented X3, CN II-XII intact and normal gait; Absent motor sensory deficit Psychiatric Psychiatric exam: Present normal affect and normal mood Skin Skin exam: Present warm and dry Medical Decision Making Medical Records Medical records reviewed: Yes I reviewed the patient's medical records. Jean-Claude Inquiry Pt receiving controlled substance: No Vital Signs: 10/16/23 17:11 10/16/23 18:00 10/16/23 18:30 Temperature 97.9 F Temperature Source Oral Pulse Rate 83 86 Pulse Rate [Radial] 88 Respiratory Rate 18 20 20 Blood Pressure 137/64 144/75 H Blood Pressure [Right Arm] 151/71 H Blood Pressure Mean Blood Pressure Mean [Right Arm] 97 Blood Pressure Source Blood Pressure Source [Right Arm] Automatic Cuff Blood Pressure Position Blood Pressure Position [Right Arm] Sitting 02 Sat by Pulse Oximetry 94 L 94 L Oxygen Delivery Method Room Air 10/16/23 20:00 10/16/23 20:33 Temperature 98.2 F Temperature Source Oral Pulse Rate 80 80 Pulse Rate [Radial] Respiratory Rate 20 Blood Pressure 147/73 H 120/65 Blood Pressure [Right Arm] Blood Pressure Mean 85 Blood Pressure Mean [Right Arm] Blood Pressure Source Automatic Cuff Blood Pressure Source [Right Arm] Blood Pressure Position Sitting Blood Pressure Position [Right Arm] 02 Sat by Pulse Oximetry 97 Oxygen Delivery Method Room Air Lab Data Lab results reviewed: Yes I reviewed the patient's lab results. Lab Results 10/16/23 17:38: VBG pH 7.32, VBG pCO2 51.3 H, VBG pO2 58.4 H, VBG HCO3 25.8, VBG Total CO2 27.4 H, VBG O2 Saturation 87.0 H, VBG Base Excess -0.3 10/16/23 18:25: WBC 7.6, RBC 3.82 L, Hgb 12.3 L, Hct 37.7 L, MCV 98.7 H, MCH 32.3 H, MCHC 32.7, RDW 13.8, Plt Count 151, MPV 9.8, Neut % (Auto) 51.0, Lymph % (Auto) 40.3, Haralson % (Auto) 6.6, Eos % (Auto) 1.6, Baso % (Auto) 0.5, Neut # (Auto) 3.9, Lymph # (Auto) 3.1, Haralson # (Auto) 0.5, Eos # (Auto) 0.1, Baso # (Auto) 0.0, PT 10.6, INR 0.98, APTT 25.1, Sodium 139, Potassium 4.3, Chloride 105, Carbon Dioxide 29, Anion Gap 9.3, BUN 20, Creatinine 0.80, Estimated Creat Clear 71, Estimated GFR 92, Est GFR ( Amer) 111, Glucose 142 H, Calcium 9.2, Total Bilirubin 0.3, AST 37, ALT 27, Alkaline Phosphatase 72, Troponin I 0.01, Total Protein 6.4, Albumin 3.9, Globulin 2.5, Albumin/Globulin Ratio 1.6 10/16/23 18:51: VBG Lactic Acid 1.7 10/16/23 18:25 10/16/23 18:25 Orders (Tests/Meds): ED MEDICATIONS Discontinued Medications Generic Name Dose Route Start Last Admin Trade Name Freq PRN Reason Stop Dose Admin Bacitracin 1 gm 10/16/23 19:44 10/16/23 20:09 Bacitracin Zinc Oint 30gm Tube TP 10/16/23 19:45 28 applic ONCE ONE Administration Cocaine HCl 1 ml 10/16/23 18:55 10/16/23 19:22 Cocaine 4% Topical Soln 4ml Bottle TP 10/16/23 18:56 1 ml ONCE ONE Administration Epinephrine HCl 1 mg 10/16/23 18:55 10/16/23 19:22 Epinephrine 1 Mg/Ml Ampul TP 10/16/23 18:56 1 mg ONCE ONE Administration Lidocaine HCl 1 ml 10/16/23 18:55 10/16/23 19:21 Lidocaine 2% Urojet 10ml TP 10/16/23 18:56 1 ml ONCE ONE Administration Tetanus/Reduced Diphtheria/Acell Pertussis 0.5 ml 10/16/23 17:38 10/16/23 19:19 Tet/Diphth/Pert-Adult 0.5ml Syringe IM 10/16/23 17:39 0.5 ml .ONCE ONE Administration ORDERS Category Date Time Status CT cervical spine wo con Stat Cat Scan 10/16/23 17:[address] head/brain wo con Stat Cat Scan 10/16/23 17:38 Completed Activated Partial Thrombo Time Stat Lab 10/16/23 18:25 Completed Complete Blood Count Auto Diff Stat Lab 10/16/23 18:25 Completed Comprehensive Metabolic Panel Stat Lab 10/16/23 18:25 Completed Lactate Venous Stat Lab 10/16/23 18:51 Completed Prothrombin Time INR Stat Lab 10/16/23 18:25 Completed Troponin I Stat Lab 10/16/23 18:25 Completed Venous Blood Gas Stat RT 10/16/23 17:38 Completed Medical Decision Narrative: In summary, this patient is a 88-year-old male presenting to the Emergency Department for evaluation of fall with head injury and left arm injury after falling asleep at the table. Differential diagnoses considered include but are not limited to intracranial hemorrhage, skull fracture, abrasion, laceration, polytrauma. Ruling out the most morbid conditions drove assessment. Patient states that he is already being worked up for these frequent episodes of falling asleep and has difficulty sleeping at night, and he is not concerned about this as it has not changed. Given the nature of this, will obtain some basic lab evaluation. Workup included CT head without contrast, CT cervical spine without contrast. He was given Tdap booster given his wounds. I independently interpreted CT scans prior to the radiologist read and noted acute intracranial hemorrhage, fracture, or other concerns. Please see their read for final interpretation. Labs were obtained that demonstrated no acutely actionable abnormalities. On reassessment, patient is resting comfortably. He is neurologically intact. On further assessment, his wounds are very superficial skin tears with very friable skin. Given this, no sutures or stapling were performed, as I do not fe el that it would hold. Given this, patient's wounds were cleaned, antibiotic ointment was applied, and they were dressed with nonstick gauze. He was given instructions for wound care, instructions for close patient follow-up, and instructions for supportive management. He is to be appropriate for discharge at this time. He was given strict return precautions and was discharged in stable condition after all questions were answered. Critical Care Critical Care Time Critical Care Time: No
[2023-10-16 18:00] VITALS: BP 137/64; PULSE 83; RESP 20; O2SAT 94
[2023-10-16 18:30] VITALS: BP 144/75; PULSE 86; RESP 20
[2023-10-16 18:37] LABS: Basophils % 0.5 % (0.1-2.0); Eosinophils # 0.1 K/mm3 (0.0-0.4); Eosinophils % 1.6 % (0.1-12.0); Hematocrit 37.7 % (42.0-52.0); Hemoglobin 12.3 g/dL (14.1-18.0); Lymphocytes # 3.1 K/mm3 (0.7-4.5); Lymphocytes % 40.3 % (10-50); Mean Corpuscular HGB Conc 32.7 g/dL (31.8-35.4); Mean Corpuscular Hemoglobin 32.3 pg (27.0-31.2); Mean Corpuscular Volume 98.7 fl (80-94); Mean Platelet Volume 9.8 fl (7.4-10.4); Monocytes # 0.5 K/mm3 (0.1-1.0); Monocytes % 6.6 % (1.7-9.3); Neutrophils # 3.9 K/mm3 (1.8-7.8); Platelet Count 151 K/mm3 (142-424); Red Blood Count 3.82 M/mm3 (4.60-6.20); Red Cell Distribution Width 13.8 % (11.5-17.5); White Blood Count 7.6 K/mm3 (4.8-10.8)
[2023-10-16 18:57] LABS: Alanine Aminotransferase 27 U/L (12-78); Albumin Level 3.9 g/dl (3.5-5.0); Albumin/Globulin Ratio 1.6 (1.1-1.8); Alkaline Phosphatase 72 U/L (38-126); Anion Gap 9.3 mEq/L (5-15); Aspartate Amino Transferase 37 U/L (17-59); Bilirubin,Total 0.3 mg/dl (0.2-1.3); Blood Urea Nitrogen 20 mg/dl (9-20); Calcium 9.2 mg/dl (8.4-10.2); Carbon Dioxide 29 mmol/L (22.0-30.0); Chloride 105 mmol/L (98-107); Creatinine Clearance Estimated 71 mL/min (50-200); Estimated Glomerular Filt Rate 92 ml/min (>60); GFR (African American) 111 ML/MIN (>60); Globulin 2.5 g/dL (1.3-3.2); Glucose 142 mg/dl (74-100); Potassium 4.3 mmoL/L (3.5-5.1); Sodium 139 mmol/L (136-145); Total Protein,Serum 6.4 g/dl (6.3-8.2)
[2023-10-16 18:58] LABS: VBG Base Excess -0.3 mmol/L (-2.4-2.3); VBG HCO3 25.8 mmol/L (23-30); VBG PCO2 51.3 mmol/L (35-51); VBG PH 7.32 mmol/L (7.31-7.41); VBG PO2 58.4 mmol/L (28-40); VBG Total CO2 27.4 mmol/L (23-27)
[2023-10-16 18:59] LABS: Activated Partial Thrombo Time 25.1 seconds (22.8-30.6); INR 0.98 (0.9-1.1); Prothrombin Time 10.6 seconds (10.1-12.5)
[2023-10-16 19:05] LABS: Lactate Venous 1.7 mmol/L (0.4-2.0)
[2023-10-16] MEDS: TET/DIPHTH/PERT-ADULT 0.5ML SYRINGE 0.5 ML IM (19:19)
[2023-10-16] MEDS: LIDOCAINE 2% UROJET 10ML TP (19:21)
[2023-10-16] MEDS: COCAINE 4% TOPICAL SOLN 4ML BOTTLE 1 ML TP (19:22)
[2023-10-16] MEDS: EPINEPHrine 1 MG/ML AMPUL TP (19:22)
[2023-10-16 19:24] LABS: Troponin I 0.01 ng/ml (0.00-0.034)
[2023-10-16 20:00] VITALS: BP 147/73; PULSE 80; O2SAT 97
[2023-10-16] MEDS: BACITRACIN ZINC OINT 30GM TUBE TP (20:09)
[2023-10-16 20:33] VITALS: BP 120/65; PULSE 80; RESP 20; TEMP 36.8; O2SAT 94
--- NOTE | 2023-10-17 12:01 | PC.NURSE ---
FAMILY (ENMANUEL SENA) UPDATED AT THIS TIME OF ADDENDUM TO HEAD CT, INSTRUCTED TO FOLLOW-UP FOR TREATMENT
== END 2023-10-16 20:51 | disposition home or self-care (01) ==
PROVIDERS: Emergency Provider Emergency Medicine; PCP Family Medicine
DX: S00.03XA Contusion of scalp, initial encounter (principal); S51.812A Laceration without foreign body of left forearm, initial encounter; I25.10 Atherosclerotic heart disease of native coronary artery without angina pectoris; E78.5 Hyperlipidemia, unspecified; I10 Essential (primary) hypertension; E11.9 Type 2 diabetes mellitus without complications; I25.2 Old myocardial infarction; G47.33 Obstructive sleep apnea (adult) (pediatric); K21.9 Gastro-esophageal reflux disease without esophagitis; I71.40 Abdominal aortic aneurysm, without rupture, unspecified; W22.09XA Striking against other stationary object, initial encounter
CPT/HCPCS: 70450; 72125; 80053; 82803; 83605; 84484; 85025; 85610; 85730; 90471; 90715; 99285

== ENCOUNTER 2023-10-18 17:50 | Emergency (ER) | payer MEDICARE, SELFPAY ==
[2023-10-18 18:45] VITALS: BP 0/0; PULSE 0; RESP 0; TEMP -17.7; TEMP 0
--- NOTE | 2023-10-18 18:46 | PC.NURSE ---
PATIENT'S DAUGHTER REQUESTING ASSISTANCE WITH DRESSING CHANGE TO PATIENT'S HEAD. BACITRACIN, NON-ADHEREANT DRESSING AND KERLIX APPLIED.
== END 2023-10-18 18:47 | disposition home or self-care (01) ==
LOC: UTC 18:38
PROVIDERS: Emergency Provider Nurse Practitioner Family; PCP Family Medicine
DX: Z48.00 Encounter for change or removal of nonsurgical wound dressing (principal); S00.01XA Abrasion of scalp, initial encounter; W22.8XXA Striking against or struck by other objects, initial encounter
CPT/HCPCS: 99211; G0463

== ENCOUNTER 2023-11-28 10:00 | Outpatient (RCR) | payer MEDICARE, SELFPAY | END 2023-11-28 10:05 | disposition home or self-care (01) | LOC: OT 10:00 | PROVIDERS: Visit Provider Nurse Practitioner | DX: M54.16 Radiculopathy, lumbar region (principal); R26.89 Other abnormalities of gait and mobility; R53.1 Weakness | CPT/HCPCS: 97010; 97014; 97110; 97140; 97164; 97165; G0283 ==

== ENCOUNTER 2023-11-28 11:00 | Outpatient (RCR) | payer MEDICARE, SELFPAY | END 2023-11-28 12:00 | disposition home or self-care (01) | LOC: PT 11:00 | PROVIDERS: Visit Provider Nurse Practitioner | DX: M54.50 Low back pain, unspecified (principal); M54.16 Radiculopathy, lumbar region; R26.89 Other abnormalities of gait and mobility | CPT/HCPCS: 97110; 97112; 97163; 97164; 97530 ==

== ENCOUNTER 2024-01-07 09:30 | Outpatient (CLI) | payer MEDICARE, SELFPAY ==
--- NOTE | 2024-01-07 09:35 | CT_ITS ---
FINAL REPORT TECHNIQUE: Before and after the administration of oral and intravenous contrast, axial images were obtained through the abdomen and pelvis by computed tomography. The study was performed with techniques to keep radiation dose as low as reasonably achievable, (ALARA). Individual dose reduction techniques using automated exposure control or adjustment of mA and/or kV according to the patient's size were employed. CLINICAL HISTORY: AAA COMPARISON: 01/09/2023 FINDINGS: There is mild scarring in the lung bases. There is a benign-appearing hepatic cyst present. The gallbladder has been surgically resected. The spleen is unremarkable. The adrenals are normal. The pancreas is unremarkable. The kidneys enhance appropriately. There are multiple exophytic benign appearing cysts present in the kidneys bilaterally. Precontrast images demonstrate no nephrolithiasis. There is an abdominal aortic aneurysm, also seen on the prior exam of 2022. On today's examination this aneurysm measures 5.7 x 5.2 cm in size with anterior mural thrombus. This does not extend into the iliac arteries. This aneurysm is larger with a thicker rim of mural thrombosis than seen on the prior exam. There are bladder diverticula present. The previous bladder wall thickening seen on the prior CT examination has resolved. Multiple phleboliths are noted in the pelvis. IMPRESSION: Abdominal aortic aneurysm with anterior mural thrombus has enlarged since the prior exam of 2022. On today's examination this aneurysm measures 5.7 x 5.2 cm in size. This aneurysm is infrarenal and does not extend into the iliac arteries. The rim of mural thrombus anteriorly is thicker than seen on the prior exam. Reviewed, Interpreted and Dictated by Marco Boo MD Transcribed by Jade Mchugh Authenticated and [facility]
[2024-01-07 09:57] LABS: Blood Urea Nitrogen 19 mg/dl (9-20); Estimated Glomerular Filt Rate 80 ml/min (>60); GFR (African American) 97 ML/MIN (>60)
[2024-01-07] MEDS: 0.9 % SODIUM CHLORIDE 50 ML VIAL IV (10:32)
[2024-01-07] MEDS: SODIUM CHLORIDE 0.9% 10ML SYR (RAD ONLY) 10 ML IV (10:33)
[2024-01-07] MEDS: IOPAMIDOL-370 (76%);100ML BOTTLE 100 ML IV (10:33)
== END 2024-01-07 23:59 | disposition home or self-care (01) ==
LOC: RAD 09:31
PROVIDERS: PCP Family Medicine; Visit Provider Thoracic Surgery (Cardiothoracic Vascular Surgery)
DX: I71.43 Infrarenal abdominal aortic aneurysm, without rupture (principal)
CPT/HCPCS: 36415; 74178; 82565; 84520; Q9967

== ENCOUNTER 2024-04-26 08:09 | Outpatient (CLI) | payer MEDICARE, SELFPAY ==
--- NOTE | 2024-04-26 08:20 | CT_ITS ---
FINAL REPORT TECHNIQUE: Pre-and postcontrast images of the abdomen were performed by computed tomography. Extensive 3-D reconstruction images were performed. A CTA was performed. This study was performed with techniques to keep radiation doses as low as reasonably achievable (ALARA). Individualized dose reduction techniques using automated exposure control or adjustment of mA and/or kV according to the patient's size were employed. CLINICAL HISTORY: ABD AORTIC ANEURYSM COMPARISON: 01/07/2024 FINDINGS: ABDOMEN AND PELVIS: Mild atelectasis versus scar is present in the lung bases. Precontrast images demonstrate no evidence of nephrolithiasis. No adrenal masses are identified. The liver, spleen and pancreas are unremarkable. The gallbladder has been surgically resected. A small right adrenal nodule is noted, likely adenoma. There are small hepatic cysts noted in the liver, stable when compared to the prior exam. Bilateral renal cysts are noted as well. There are scattered diverticula in the colon without acute inflammatory change, as well as a small left bladder diverticulum. 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 CTA: In the interim since the prior CT of January 06, there has been placement of an aortic stent graft, which measures 5.9 cm in AP diameter. There is a single small focus of gas which is in the clot, of questionable significance. 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 There is a focal web just distal to the origin, which appears visually slightly more prominent than on the previous exam. 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 The ANGELIQUE is occluded. There is no significant stenosis or calcification. The renal arteries are patent bilaterally. IMPRESSION: There has been interval placement of an aortic stent graft as described above. 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 The ANGELIQUE is occluded. Reviewed, Interpreted and Dictated by Isauro Miller III, MD Transcribed by Jade Mchugh Authenticated and [facility]
[2024-04-26 08:51] LABS: Blood Urea Nitrogen 19 mg/dl (9-20); Estimated Glomerular Filt Rate 63 ml/min (>60); GFR (African American) 77 ML/MIN (>60)
[2024-04-26] MEDS: 0.9 % SODIUM CHLORIDE 50 ML VIAL IV (09:22)
[2024-04-26] MEDS: IOPAMIDOL-370 (76%);100ML BOTTLE 100 ML IV (09:22)
[2024-04-26] MEDS: SODIUM CHLORIDE 0.9% 10ML SYR (RAD ONLY) 10 ML IV (09:22)
== END 2024-04-26 23:59 | disposition home or self-care (01) ==
LOC: RAD 08:10
PROVIDERS: PCP Family Medicine; Visit Provider Nurse Practitioner Family
DX: I71.43 Infrarenal abdominal aortic aneurysm, without rupture (principal)
CPT/HCPCS: 36415; 74174; 82565; 84520; Q9967